=== PATIENT | female | born 1945 | race Asian ===

== ENCOUNTER 2016-06-04 08:03 | Inpatient (IN) | payer MEDICARE, OTHER ==
[2016-06-04] VITALS (7 sets, daily range): BP systolic 163–210; BP diastolic 72–98; PULSE 72–92; RESP 16–20; TEMP 96.2–98.2; O2SAT 96–99
[~2016-06-04] VITALS: Ht 154.9 cm; Wt 49.0 kg
[~2016-06-04 08:03] MED LIST: CARV6.25 PO; ENAL20TA81 PO; HYDR50TA15 PO; NORV5TAB PO; RANI150 PO; RENATAB6 PO; TUMS500C PO; [UNRECOGNIZED DRUG - CODE] PO
[2016-06-04] MEDS ORDERED: RENATAB5 PO (08:22)
[2016-06-04] MEDS ORDERED: AMLO5 PO (08:22)
[2016-06-04] MEDS ORDERED: MECL-62 PO (08:22)
[2016-06-04] MEDS ORDERED: CALC500C16 CHEW (08:22)
[2016-06-04] MEDS ORDERED: VITA200013 (08:22)
[2016-06-04] MEDS ORDERED: RANI150T PO (08:22)
[2016-06-04] MEDS ORDERED: PANTOPRAZOLE SODIUM 40 MG VIAL IVP ONE (08:30)
--- NOTE | 2016-06-04 08:30 | PD ---
HPI Chief Complaint: GI Complaint Time Seen by Provider: 08:26 Travel History International Travel<30 days: No Contact w/Intl Traveler<30days: No Traveled to known affect area: No History of Present Illness HPI 70-year-old female with history of end-stage renal disease on dialysis, had dialysis today, presents to the ER today because she started having red blood in her stools today. She states that she has had at least 3 stools of red blood. No black stools. She denies any abdominal pain, vomiting, or any other symptoms. Modifying Factors: None Associated Signs & Symptoms: Red bloody stools 3 today Risk Factors: End-stage renal disease, on dialysis PFSH Past Medical History Blood Disorders: No Cancer: No Cardiovascular Problems: No Diabetes: No Dialysis: Yes (M,W,F) Glaucoma: Yes Hepatitis: No Hiatal Hernia: No Hypertension: Yes Psychiatric: No Respiratory: No Immunizations Current: Yes Renal Failure: Yes (NO URINE OUT PUT) Thyroid Disease: Yes (HYPERPARATHYROIDISM) Menopausal: Yes Past Surgical History Abdominal Surgery: Yes (TUMOR REMOVED) Endocrine Surgery: Yes (RENAL FAILURE, PARATHYROIDECTOMY) Genitourinary Surgery: Yes (RIGHT NEPHRECTOMY) Gynecologic Surgery: Yes (HYSTERECTOMY) Pacemaker: No Other Surgery: Yes Social History Alcohol Use: No Tobacco Use: No Substance Use: No Allergies-Medications (Allergen,Severity, Reaction): Coded Allergies: Ancef (Verified Allergy, Severe, UNSURE, 08/27/12) Cephalosporins (Verified Allergy, Severe, 08/27/12) ANCEF Chlorhexidine (Verified Allergy, Severe, 08/27/12) HIBICLENS Hibiclens (Verified Allergy, Severe, UNSURE, 08/27/12) Reported Meds & Prescriptions Reported Meds & Active Scripts Active Reported Nadine-Santa (B-Complex W/ C & Folic Acid) 1 Tab 1 Tab PO DAILY Ranitidine (Ranitidine HCl) 150 Mg Tab 150 Mg PO BID Calcium Carbonate (Antacid) 500 Mg Chew 500 Mg CHEW PRN Vitamin D (Cholecalciferol) 2,000 Unit Cap Meclizine (Meclizine HCl) 25 Mg Tab 25 Mg PO DIRECTED PRN Norvasc (Amlodipine Besylate) 5 Mg Tab 5 Mg PO DAILY Review of Systems Except as stated in HPI: all other systems reviewed are Neg Physical Exam Narrative GENERAL: Well-developed elderly female in no acute distress. Awake, alert , oriented 3. SKIN: Warm and dry. HEAD: Atraumatic. Normocephalic. EYES: Pupils equal and round. No scleral icterus. No injection or drainage. ENT: No nasal bleeding or discharge. Mucous membranes pink and moist. NECK: Trachea midline. No JVD. CARDIOVASCULAR: Regular rate and rhythm. No murmur appreciated. RESPIRATORY: No accessory muscle use. Clear to auscultation. Breath sounds equal bilaterally. GASTROINTESTINAL: Abdomen soft, non-tender, nondistended. Hepatic and splenic margins not palpable. RECTAL EXAM: No masses or tenderness, stool is reddish brown, Hemoccult positive. MUSCULOSKELETAL: No obvious deformities. No clubbing. No cyanosis. No edema. NEUROLOGICAL: Awake and alert. No obvious cranial nerve deficits. Motor grossly within normal limits. Normal speech. PSYCHIATRIC: Appropriate mood and affect; insight and judgment normal. Data Data Last Documented VS Vital Signs Date Time Temp Pulse Resp B/P Pulse Ox O2 Delivery O2 Flow Rate FiO2 06/04/16 09:22 99 Room Air 06/04/16 08:05 97.4 92 20 210/95 Orders Complete Blood Count With Diff (06/04/16 08:26) Comprehensive Metabolic Panel (06/04/16 08:26) Prothrombin Time / Inr (Pt) (06/04/16 08:26) Act Partial Throm Time (Ptt) (06/04/16 08:26) Type And Screen (06/04/16 08:26) Ecg Monitoring (06/04/16 08:26) Iv Access Insert/Monitor (06/04/16 08:26) Oximetry (06/04/16 08:26) Pantoprazole Inj (Protonix Inj) (06/04/16 08:30) Sodium Chloride 0.9% Flush (Ns Flush) (06/04/16 08:30) Vascular Access Team Consult PRN (06/04/16 08:26) Vascular Poc Ultrasound (06/04/16 ) Red Blood Cells (Rbc) (06/04/16 08:20) Amlodipine (Norvasc) (06/05/16 09:00) Vitamin B Cmplx-Vit C-Folic Ac (Nephroca (06/05/16 09:00) Admit Order (Ed Use Only) (06/04/16 10:48) Famotidine (Pepcid) (06/04/16 21:00) Labs Laboratory Tests Test 06/04/16 06/04/16 06/04/16 08:20 08:50 10:00 Sodium Level 137 MEQ/L Potassium Level 4.2 MEQ/L Chloride Level 100 MEQ/L Carbon Dioxide Level 23.6 MEQ/L Anion Gap 13 MEQ/L Blood Urea Nitrogen 28 MG/DL Creatinine 6.20 MG/DL Estimat Glomerular Filtration 7 ML/MIN Rate Random Glucose 109 MG/DL Calcium Level 9.5 MG/DL Total Bilirubin 0.5 MG/DL Aspartate Amino Transf 23 U/L (AST/SGOT) Alanine Aminotransferase 18 U/L (ALT/SGPT) Alkaline Phosphatase 93 U/L Total Protein 8.2 GM/DL Albumin 3.8 GM/DL White Blood Count 6.9 TH/MM3 Red Blood Count 3.76 MIL/MM3 Hemoglobin 9.2 GM/DL Hematocrit 26.6 % Mean Corpuscular Volume 70.7 FL Mean Corpuscular Hemoglobin 24.4 PG Mean Corpuscular Hemoglobin 34.5 % Concent Red Cell Distribution Width 14.9 % Platelet Count 253 TH/MM3 Mean Platelet Volume 7.2 FL Neutrophils (%) (Auto) 85.2 % Lymphocytes (%) (Auto) 5.6 % Monocytes (%) (Auto) 5.0 % Eosinophils (%) (Auto) 3.4 % Basophils (%) (Auto) 0.8 % Neutrophils # (Auto) 5.9 TH/MM3 Lymphocytes # (Auto) 0.4 TH/MM3 Monocytes # (Auto) 0.3 TH/MM3 Eosinophils # (Auto) 0.2 TH/MM3 Basophils # (Auto) 0.1 TH/MM3 CBC Comment AUTO DIFF Differential Comment AUTO DIFF CONFIRMED Ovalocytes 1+ Prothrombin Time 10.7 SEC Prothromb Time International 1.0 RATIO Ratio Activated Partial 27.9 SEC Thromboplast Time Blood Type O POSITIVE Antibody Screen NEGATIVE Crossmatch Leukocyte-Reduced Red Blood Cells Blood Bank Comment MDM Medical Decision Making Medical Screen Exam Complete: Yes Emergency Medical Condition: Yes Medical Record Reviewed: Yes Interpretation(s) Laboratory Tests Test 06/04/16 06/04/16 08:20 08:50 Blood Urea Nitrogen 28 MG/DL (7-18) Creatinine 6.20 MG/DL (0.50-1.00) Estimat Glomerular Filtration 7 ML/MIN (>89) Rate Random Glucose 109 MG/DL (74-106) Red Blood Count 3.76 MIL/MM3 (4.00-5.30) Hemoglobin 9.2 GM/DL (11.6-15.3) Hematocrit 26.6 % (35.0-46.0) Mean Corpuscular Volume 70.7 FL (80.0-100.0) Mean Corpuscular Hemoglobin 24.4 PG (27.0-34.0) Neutrophils (%) (Auto) 85.2 % (16.0-70.0) Lymphocytes (%) (Auto) 5.6 % (9.0-44.0) Lymphocytes # (Auto) 0.4 TH/MM3 (1.0-4.8) Ovalocytes 1+ (NORMAL) Differential Diagnosis Rectal bleedingcoagulopathy versus GI bleeding versus gastroenteritis versus hemorrhoids Narrative Course Hemoccult positive on assessment the patient gave us. Rectal exam also shows bleeding. H&H is stable. Vital signs are stable. Case is discussed with Dr. Tobar for admission for further evaluation of GI bleeding. She was given IV Protonix in the ER. Case was also discussed with Dr. Arellano who states that he would like the patient to receive an NG tube and plans to scope the patient. HemaPrompt Point of Care Internal Pos. & Neg. Controls: Passed Fecal Specimen Occult Blood: Positive Diagnosis Primary Impression: GI bleed Admitting Information Admitting Physician Requests: Admit Arden Wolf MD Jun 04, 2016 08:30
[2016-06-04 08:54] LABS: ALT (GPT) 18 U/L (10-53); ANION GAP 13 MEQ/L (5-15); AST (GOT) 23 U/L (15-37); BICARBONATE 23.6 MEQ/L (21.0-32.0); BLOOD UREA NITROGEN 28 MG/DL (7-18); CHLORIDE 100 MEQ/L (98-107); GLOMERULAR FILTRATION RATE 7 ML/MIN (>89); POTASSIUM 4.2 MEQ/L (3.5-5.1); SODIUM (NA) 137 MEQ/L (136-145)
[2016-06-04 08:56] LABS: ALKALINE PHOSPHATASE 93 U/L (45-117); TOTAL BILIRUBIN ADULT 0.5 MG/DL (0.2-1.0)
[2016-06-04 09:02] LABS: AUTOMATED NEUTROPHIL # 5.9 TH/MM3 (1.8-7.7); BASOPHIL # 0.1 TH/MM3 (0-0.2); BASOPHIL % 0.8 % (0.0-2.0); EOSINOPHIL # 0.2 TH/MM3 (0-0.4); EOSINOPHIL % 3.4 % (0.0-4.0); HEMATOCRIT 26.6 % (35.0-46.0); LYMPH % 5.6 % (9.0-44.0); LYMPHOCYTE # 0.4 TH/MM3 (1.0-4.8); MEAN CELL VOLUME 70.7 FL (80.0-100.0); MEAN CORPUSCULAR HEMOGLOBIN 24.4 PG (27.0-34.0); MEAN CORPUSCULAR HGB CONC 34.5 % (32.0-36.0); NEUT % 85.2 % (16.0-70.0); PLATELET COUNT 253 TH/MM3 (150-450); RED BLOOD COUNT 3.76 MIL/MM3 (4.00-5.30); RED CELL DISTRIBUTION WIDTH 14.9 % (11.6-17.2); WHITE BLOOD COUNT 6.9 TH/MM3 (4.0-11.0)
[2016-06-04 09:04] LABS: HEMO FLAGS AUTO DIFF
[2016-06-04 09:08] LABS: APTT (PATIENT) 27.9 SEC (24.3-30.1); PROTHROMBIN TIME - PATIENT 10.7 SEC (9.8-11.6)
[2016-06-04] MEDS: SODIUM CHLORIDE 0.9% FLUSH 5 ML FLUSH IVF PRN ×2 (09:11→09:20)
[2016-06-04 09:46] LABS: OVALOCYTES 1+ (NORMAL); SCAN/DIFF AUTO DIFF CONFIRMED
[2016-06-04] MEDS ORDERED: BISACODYL 10 MG SUPP PR PRN (11:00)
[2016-06-04] MEDS ORDERED: ONDANSETRON HCL 4 MG/2 ML VIAL IVP PRN (11:00)
[2016-06-04] MEDS ORDERED: NALOXONE HCL 0.4 MG/ML AMP IV PRN (11:00)
[2016-06-04] MEDS ORDERED: SODIUM CHLORIDE 0.9% FLUSH 5 ML FLUSH FLUSH PRN (11:00)
--- NOTE | 2016-06-04 11:00 | HHI.HP ---
[facility] Service [facility] Primary Care Physician Solitario Martinez MD Admission Diagnosis GI bleed Diagnoses: Chief Complaint: GI bleed Travel History International Travel<30 Days: No Contact w/Intl Traveler <30 Da: No Traveled to Known Affected Are: No History of Present Illness This is a pleasant 70 y/o Female with ESRD on Hemodialysis she had Dialysis today and was sent to Emergency room due to acute Rectal bleed, she started today with red blood in her stools, as Hematochezia no black stools, denied abdominal pain, vomiting. Discussed in the room with the patient's Mr. Jose Elias Miller and with her Daughter Miss Robbie Miller through the phone who serves as Yard Pilot for her Mother, the patient left her Home this morning at 4:30 AM and then went for Hemodialysis, while on HD she had the urge to go to the restroom and had blood in her anal and perianal area. for this reason was transferred to ER. Review of Systems Gastrointestinal: COMPLAINS OF: Bloody stools Past Family Social History Past Medical History ESRD on HD Wednesday, Wednesday and Wednesday. Hypertension Hyperparathyroidism Past Surgical History AV Graft Renal failure Parathyroidectomy Right Nephrectomy [facility] Reported Medications Reported Meds & Active Scripts Active Reported Nadine-Santa (B-Complex W/ C & Folic Acid) 1 Tab 1 Tab PO DAILY Ranitidine (Ranitidine HCl) 150 Mg Tab 150 Mg PO BID Calcium Carbonate (Antacid) 500 Mg Chew 500 Mg CHEW PRN Vitamin D (Cholecalciferol) 2,000 Unit Cap Meclizine (Meclizine HCl) 25 Mg Tab 25 Mg PO DIRECTED PRN Norvasc (Amlodipine Besylate) 5 Mg Tab 5 Mg PO DAILY Allergies: Coded Allergies: Ancef (Verified Allergy, Severe, UNSURE, 08/27/12) Cephalosporins (Verified Allergy, Severe, 08/27/12) ANCEF Chlorhexidine (Verified Allergy, Severe, 08/27/12) HIBICLENS Hibiclens (Verified Allergy, Severe, UNSURE, 08/27/12) Active Ordered Medications Current Medications Medications (Trade) Dose Ordered Sig/Freda Route Start Time Stop Time Status Last Admin (NS Flush) 2 ml UNSCH PRN IVF 06/04/16 08:30 06/04/16 09:20 (Norvasc) 5 mg DAILY PO 06/05/16 09:00 UNV (Zantac) 150 mg BID PO 06/04/16 21:00 UNV Non-Formulary Medication 1 tab DAILY PO 06/05/16 09:00 UNV Family History Asked to her Daughter and denies, she does not know about it Social History Lives with her and denies any toxic habit. Physical Exam Vital Signs Vital Signs Date Time Temp Pulse Resp B/P Pulse Ox O2 Delivery O2 Flow Rate FiO2 06/04/16 09:22 99 Room Air 06/04/16 08:05 97.4 92 20 210/95 99 Room Air Physical Exam GENERAL: Well-developed elderly female in no acute distress. Awake, alert , oriented 3. SKIN: Warm and dry. HEAD: Atraumatic. Normocephalic. EYES: Pupils equal and round. No scleral icterus. No injection or drainage. ENT: No nasal bleeding or discharge. Mucous membranes pink and moist. NECK: Trachea midline. No JVD. CARDIOVASCULAR: Regular rate and rhythm. Systolic Murmur in all focus evaluated. RESPIRATORY: No accessory muscle use. Clear to auscultation. Breath sounds equal bilaterally. GASTROINTESTINAL: Abdomen soft, non-tender, nondistended. Hepatic and splenic margins not palpable. RECTAL EXAM: No masses or tenderness, stool is reddish brown, Hemoccult positive. MUSCULOSKELETAL: No obvious deformities. No clubbing. No cyanosis. No edema. NEUROLOGICAL: Awake and alert. No obvious cranial nerve deficits. Motor grossly within normal limits. Normal speech. PSYCHIATRIC: Appropriate mood and affect; insight and judgment normal. Laboratory Laboratory Tests Test 06/04/16 06/04/16 06/04/16 08:20 08:50 10:00 Sodium Level 137 Potassium Level 4.2 Chloride Level 100 Carbon Dioxide Level 23.6 Anion Gap 13 Blood Urea Nitrogen 28 Creatinine 6.20 Estimat Glomerular Filtration 7 Rate Random Glucose 109 Calcium Level 9.5 Total Bilirubin 0.5 Aspartate Amino Transf 23 (AST/SGOT) Alanine Aminotransferase 18 (ALT/SGPT) Alkaline Phosphatase 93 Total Protein 8.2 Albumin 3.8 White Blood Count 6.9 Red Blood Count 3.76 Hemoglobin 9.2 Hematocrit 26.6 Mean Corpuscular Volume 70.7 Mean Corpuscular Hemoglobin 24.4 Mean Corpuscular Hemoglobin 34.5 Concent Red Cell Distribution Width 14.9 Platelet Count 253 Mean Platelet Volume 7.2 Neutrophils (%) (Auto) 85.2 Lymphocytes (%) (Auto) 5.6 Monocytes (%) (Auto) 5.0 Eosinophils (%) (Auto) 3.4 Basophils (%) (Auto) 0.8 Neutrophils # (Auto) 5.9 Lymphocytes # (Auto) 0.4 Monocytes # (Auto) 0.3 Eosinophils # (Auto) 0.2 Basophils # (Auto) 0.1 CBC Comment AUTO DIFF Differential Comment AUTO DIFF CONFIRMED Ovalocytes 1+ Prothrombin Time 10.7 Prothromb Time International 1.0 Ratio Activated Partial 27.9 Thromboplast Time Blood Type O POSITIVE Result Diagram: 06/04/16 0850 06/04/16 0820 Assessment and Plan Assessment and Plan 1. Rectal Bleed evident on Rectal Exam by ER specialist, Hemoglobin stable in 9, continue H and H every six hours, consult GI specialist. start NPO Protonix, following GI specialist recommendations. 2. ESRD on HD on MWF she had HD today, will follow Nephrology specialist recommendations. 3. Hypertension controlled continue Home medicines 4. Anemia on chronic disease Hemoglobin stable in 9 following, transfuse as needed. DVT prophylaxis with SCDs Pharmacological Prophylaxis contraindicated due to acute GI bleed. Discussed with Patient with her Mr. Jose Elias Miller and through the phone with her Daughter Miss Robbie Miller who serves as music therapy teacher for her Mother appreciated all questions answered to the best of my abilities. Consult GI consult Nephrology Protonix SCDs Hemoglobin A1C, TSH, Free T4. H and H every six hours. PT consult No need to continue PT at Discharge. As Always a pleasure to talk about cases with Emergency Medicine specialist doctor Arden Wolf input and recommendations highly appreciated. Code Status Full code. Discussed Condition With Discussed with Patient with her Mr. Jose Elias Miller and through the phone with her Daughter Miss Robbie Miller who serves as music therapy teacher for her Mother appreciated all questions answered to the best of my abilities. As Always a pleasure to talk about cases with Emergency Medicine specialist doctor Arden Ramosara input and recommendations highly appreciated. Physician Certification 2 Midnight Certification Type: Admission for Inpatient Services Order for Inpatient Services The services are ordered in accordance with Medicare regulations or non- Medicare payer requirements, as applicable. In the case of services not specified as inpatient-only, they are appropriately provided as inpatient services in accordance with the 2-midnight benchmark. Estimated LOS (days): 3 days is the estimated time the patient will need to remain in the hospital, assuming treatment plan goals are met and no additional complications. Post-Hospital Plan: Home Cirilo Elaine MD Jun 04, 2016 11:00
[2016-06-04 12:38] LABS: FREE T4 1.24 NG/DL (0.76-1.46)
[2016-06-04 12:39] LABS: HEMOGLOBIN A1a 1.2 %; HEMOGLOBIN A1b 0.7 %; HEMOGLOBIN Ao 55.5 %; HEMOGLOBIN F 1.1 %
[2016-06-04] MEDS: SODIUM CHLOR 0.9% 1000 ML INJ 1,000 ML IV SCH ×2 (12:49→14:38)
[2016-06-04] MEDS: DOCUSATE SODIUM 100 MG CAP PO SCH ×2 (12:49→22:19)
[2016-06-04] MEDS: PANTOPRAZOLE SODIUM 40 MG VIAL IV PUSH SCH ×2 (12:50→22:19)
[2016-06-04] MEDS: SODIUM CHLORIDE 0.9% FLUSH 5 ML FLUSH FLUSH SCH ×2 (12:51→22:20)
--- NOTE | 2016-06-04 12:52 | PD.CONS ---
HPI History of Present Illness This is a 70 year old female patient with a history of end-stage renal disease ( on hemodialysis on Tuesdays, and Saturdays), hypertension, and a remote history of peptic ulcer disease many years ago who came to the emergency room for evaluation of rectal bleeding after having an episode while at dialysis earlier this am. This actually started earlier this morning around 4: 30 when she had the urge to move her bowels and just passed bright red blood. This consisted of a large amount of bright red blood independent from stool. She had 2 episodes today. She denies any associated nausea, vomiting, abdominal pain, constipation, or diarrhea. She denies any heartburn although she she is taking Zantac and Tums at home. Her daughter reports that she's been on these for many years since she had a stomach ulcer many years ago. She has never had an EGD or colonoscopy. She does not take ibuprofen does not drink any alcohol. She was in her normal state of health up until yesterday and denies any decreased appetite or weight loss. She does not know her family history, as they are all still living in [facility]. (Susan Davila) PFSH Past Medical History ESRD on HD Tuesdays, , and Saturdays. Hypertension Hyperparathyroidism Remote hx of PUD Hx glomerulonephritis Past Surgical History AV Graft Renal failure Parathyroidectomy Right Nephrectomy [facility] (Susan Davila) Coded Allergies: Ancef (Verified Allergy, Severe, UNSURE, 08/27/12) Cephalosporins (Verified Allergy, Severe, 08/27/12) ANCEF Chlorhexidine (Verified Allergy, Severe, 08/27/12) HIBICLENS Hibiclens (Verified Allergy, Severe, UNSURE, 08/27/12) Medications Allergies Coded Allergies Type Severity Reaction Last Updated Verified Ancef Allergy Severe UNSURE 08/27/12 Yes Cephalosporins Allergy Severe 08/27/12 Yes Chlorhexidine Allergy Severe 08/27/12 Yes Hibiclens Allergy Severe UNSURE 08/27/12 Yes Active Scripts Medications Dose Route/Sig Days Date Category Nadine-Santa (B-Complex W/ C & Folic Acid) 1 Tab 1 Tab PO DAILY 06/04/16 Reported Ranitidine (Ranitidine HCl) 150 Mg Tab 150 Mg PO BID 06/04/16 Reported Calcium Carbonate (Antacid) 500 Mg Chew 500 Mg CHEW PRN 06/04/16 Reported Vitamin D (Cholecalciferol) 2,000 Unit Cap 06/04/16 Reported Meclizine (Meclizine HCl) 25 Mg Tab 25 Mg PO DIRECTED PRN 06/04/16 Reported Norvasc (Amlodipine Besylate) 5 Mg Tab 5 Mg PO DAILY 06/04/16 Reported Family History Daughter reports that they do not know the family hx as they are all still in [facility] and they do not keep in touch. Social History Denies any tobacco, ETOH, or illicit drug use. (Susan Davila) Review of Systems Constitutional: DENIES: Fatigue, Weight loss, Change in appetite Respiratory: DENIES: Shortness of breath Cardiovascular: DENIES: Chest pain Gastrointestinal: COMPLAINS OF: Bloody stools, DENIES: Abdominal pain, Black stools, Constipation, Diarrhea, Nausea, Vomiting, Heartburn, Hematemesis Neurologic: DENIES: Headache Psychiatric: DENIES: Confusion (Susan Davila) GI Exam Vitals I&O Vital Signs Date Time Temp Pulse Resp B/P Pulse Ox O2 Delivery O2 Flow Rate FiO2 06/04/16 09:22 99 Room Air 06/04/16 08:05 97.4 92 20 210/95 99 Room Air Laboratory Test 06/04/16 06/04/16 06/04/16 08:20 08:50 10:00 Sodium Level 137 MEQ/L Potassium Level 4.2 MEQ/L Chloride Level 100 MEQ/L Carbon Dioxide Level 23.6 MEQ/L Anion Gap 13 MEQ/L Blood Urea Nitrogen 28 MG/DL Creatinine 6.20 MG/DL Estimat Glomerular Filtration 7 ML/MIN Rate Random Glucose 109 MG/DL Calcium Level 9.5 MG/DL Total Bilirubin 0.5 MG/DL Aspartate Amino Transf 23 U/L (AST/SGOT) Alanine Aminotransferase 18 U/L (ALT/SGPT) Alkaline Phosphatase 93 U/L Total Protein 8.2 GM/DL Albumin 3.8 GM/DL White Blood Count 6.9 TH/MM3 Red Blood Count 3.76 MIL/MM3 Hemoglobin 9.2 GM/DL Hematocrit 26.6 % Mean Corpuscular Volume 70.7 FL Mean Corpuscular Hemoglobin 24.4 PG Mean Corpuscular Hemoglobin 34.5 % Concent Red Cell Distribution Width 14.9 % Platelet Count 253 TH/MM3 Mean Platelet Volume 7.2 FL Neutrophils (%) (Auto) 85.2 % Lymphocytes (%) (Auto) 5.6 % Monocytes (%) (Auto) 5.0 % Eosinophils (%) (Auto) 3.4 % Basophils (%) (Auto) 0.8 % Neutrophils # (Auto) 5.9 TH/MM3 Lymphocytes # (Auto) 0.4 TH/MM3 Monocytes # (Auto) 0.3 TH/MM3 Eosinophils # (Auto) 0.2 TH/MM3 Basophils # (Auto) 0.1 TH/MM3 CBC Comment AUTO DIFF Differential Comment AUTO DIFF CONFIRMED Ovalocytes 1+ Prothrombin Time 10.7 SEC Prothromb Time International 1.0 RATIO Ratio Activated Partial 27.9 SEC Thromboplast Time Blood Type O POSITIVE Antibody Screen NEGATIVE Crossmatch Leukocyte-Reduced Red Blood Cells Blood Bank Comment Physical Examination HEENT: Normocephalic; atraumatic; no jaundice. CHEST: CTA CARDIAC: RRR. ABDOMEN: Soft, nondistended, nontender; no hepatosplenomegaly; bowel sounds are present in all four quadrants. EXTREMITIES: No clubbing, cyanosis, or edema. SKIN: Normal; no rash; no jaundice. RECREATIONAL FACILITIES MOTEL MANAGER: No focal deficits; alert and oriented times three. (Susan Davila) Assessment and Plan Plan ASSESSMENT: - GIB, Lower with BRBPR. Pt denies any n/v, abdominal pain, constipation, diarrhea. 2 episodes of large amount bright red blood, independent from stool. Pt's daughter believes patient has remote hx of PUD and does take Zantac at home, although she is not currently having symptoms with this. Denies hx of egd/colonoscopy. Unsuccessful attempt was made to place NGT to see if there was any upper GI bleed component (bloody gastric secretions)- this was unable to be placed despite multiple attempts. .. Will plan for egd/colonoscopy in am. Spoke to pt, , and daughter Robbie Frederick . - Anemia. . - ESRD, HD Tuesdays, , Saturdays per renal. - HTN per primary PLAN: - Plan for egd/colonoscopy in am - Obtain consents - Clear liquids - NPO after MN - Golytely prep - PPI - Monitor HH - Transfuse as necessary - Supportive care - Further recommendations to follow based on results of above - Pt seen and examined by Dr. Green and myself and this note is written on his behalf (Susan Davila) Physician Comments Seen and examined with ДМИТРИЙ, no active bleeding rported. Egd/colonoscopy planned for tomorrow. Golytle prep. at bedside. Discussed with the daughter BY Ms. Lola CHOE. Unable to place NGT. WIll follow, thank you ( Jenny Green MD) Susan Davila Jun 04, 2016 12:52 Jenny Green MD Jun 04, 2016 13:48
[2016-06-04] MEDS ORDERED: hydrALAZINE HCL 20 MG/ML VIAL IV PUSH PRN (13:00)
[2016-06-04] MEDS: cloNIDine HCL 0.1 MG TAB PO PRN (15:06)
[2016-06-04] MEDS ORDERED: PEG (High)/E-LYTE SOLN 4000 ML BTL PO ONE (16:00)
[2016-06-04] MEDS ORDERED: SODIUM CHLOR 0.9% 1000 ML INJ 1,000 ML IV PRN ×3 (17:12)
--- NOTE | 2016-06-04 17:12 | PD.CONS ---
[facility] Service Nephrology Consult Requested By Reason for Consult ESRD on HD Primary Care Physician Solitario Martinez MD History of Present Illness This is a 70 y/o female pt formerly from [facility]. She went to HD today, had her full treatment. Later, she developed GI bleeding for which she came in for evaluation. She has a graft in her left thigh that works well. No current electrolyte concerns, we were consulted for dialysis management. PMH as outlined below, she has been evaluated by GI and is scheduled for EGD/ colonoscopy in am. She is a full code. (Raquel Farrell) Review of Systems Constitutional: DENIES: Fatigue Respiratory: DENIES: Shortness of breath Cardiovascular: DENIES: Lower Extremity Edema Gastrointestinal: COMPLAINS OF: Bloody stools, Nausea, DENIES: Abdominal pain , Diarrhea, Vomiting (Raquel Farrell) Past Family Social History Allergies: Coded Allergies: Ancef (Verified Allergy, Severe, UNSURE, 08/27/12) Cephalosporins (Verified Allergy, Severe, 08/27/12) ANCEF Chlorhexidine (Verified Allergy, Severe, 08/27/12) HIBICLENS Hibiclens (Verified Allergy, Severe, UNSURE, 08/27/12) Past Medical History ESRD on HD Tuesdays, , and Saturdays. Hypertension anemia of chronic disease metabolic bone disorder Secondary Hyperparathyroidism Remote hx of PUD Hx glomerulonephritis Past Surgical History L thigh AV Graft Renal failure Parathyroidectomy Right Nephrectomy [place] Reported Medications Nadine-Santa (B-Complex W/ C & Folic Acid) 1 Tab 1 Tab PO DAILY Ranitidine (Ranitidine HCl) 150 Mg Tab 150 Mg PO BID Calcium Carbonate (Antacid) 500 Mg Chew 500 Mg CHEW PRN Vitamin D (Cholecalciferol) 2,000 Unit Cap Meclizine (Meclizine HCl) 25 Mg Tab 25 Mg PO DIRECTED PRN Norvasc (Amlodipine Besylate) 5 Mg Tab 5 Mg PO DAILY Active Ordered Medications Current Medications Medications (Trade) Dose Ordered Sig/Freda Route Start Time Stop Time Status Last Admin (NS Flush) 2 ml UNSCH PRN IVF 06/04/16 08:30 06/04/16 09:20 (Norvasc) 5 mg DAILY PO 06/05/16 09:00 (Pepcid) 10 mg BID PO 06/04/16 21:00 (Nephrocaps) 1 cap DAILY PO 06/05/16 09:00 (NS Flush) 2 ml UNSCH PRN FLUSH 06/04/16 11:00 (NS Flush) 2 ml BID FLUSH 06/04/16 21:00 06/04/16 12:51 (Zofran Inj) 4 mg Q6H PRN IVP 06/04/16 11:00 (Dulcolax Supp) 10 mg DAILY PRN [place] 06/04/16 11:00 (Colace) 100 mg Q12H PO 06/04/16 11:00 06/04/16 12:49 (Narcan Inj) 0.4 mg UNSCH PRN IV 06/04/16 11:00 (Protonix Inj) 40 mg Q12H IV PUSH 06/04/16 12:00 06/04/16 12:50 (Apresoline Inj) 10 mg Q6HR PRN IV PUSH 06/04/16 13:00 (Catapres) 0.1 mg Q6H PRN PO 06/04/16 15:00 06/04/16 15:06 Family History she does not have contact with her family in [facility] Social History originally from [facility] Retired lives with , ambulatory no smoking or ETOH full code (Raquel Farrell) Physical Exam Vital Signs Vital Signs Date Time Temp Pulse Resp B/P Pulse Ox O2 Delivery O2 Flow Rate FiO2 06/04/16 14:17 96.2 78 16 194/83 97 06/04/16 13:58 06/04/16 13:03 188/98 06/04/16 09:22 99 Room Air 06/04/16 08:05 97.4 92 20 210/95 99 Room Air Physical Exam Small framed elderly [place] female, appears stated age, lying in bed awake/alert, no neuro deficit CV: S1/S2, II/ JASS lungs: clear abdomen: soft, non tender ext: no edema, left thigh graft patent distal pulses intact Laboratory Laboratory Tests Test 06/04/16 06/04/16 06/04/16 08:20 08:50 10:00 Sodium Level 137 Potassium Level 4.2 Chloride Level 100 Carbon Dioxide Level 23.6 Anion Gap 13 Blood Urea Nitrogen 28 Creatinine 6.20 Estimat Glomerular Filtration 7 Rate Random Glucose 109 Calcium Level 9.5 Total Bilirubin 0.5 Aspartate Amino Transf 23 (AST/SGOT) Alanine Aminotransferase 18 (ALT/SGPT) Alkaline Phosphatase 93 Total Protein 8.2 Albumin 3.8 White Blood Count 6.9 Red Blood Count 3.76 Hemoglobin 9.2 Hematocrit 26.6 Mean Corpuscular Volume 70.7 Mean Corpuscular Hemoglobin 24.4 Mean Corpuscular Hemoglobin 34.5 Concent Red Cell Distribution Width 14.9 Platelet Count 253 Mean Platelet Volume 7.2 Neutrophils (%) (Auto) 85.2 Lymphocytes (%) (Auto) 5.6 Monocytes (%) (Auto) 5.0 Eosinophils (%) (Auto) 3.4 Basophils (%) (Auto) 0.8 Neutrophils # (Auto) 5.9 Lymphocytes # (Auto) 0.4 Monocytes # (Auto) 0.3 Eosinophils # (Auto) 0.2 Basophils # (Auto) 0.1 CBC Comment AUTO DIFF Differential Comment AUTO DIFF CONFIRMED Ovalocytes 1+ Prothrombin Time 10.7 Prothromb Time International 1.0 Ratio Activated Partial 27.9 Thromboplast Time Hemoglobin A1c 5.6 Free Thyroxine 1.24 Thyroid Stimulating Hormone 2.240 3rd Gen Blood Type O POSITIVE Antibody Screen NEGATIVE Crossmatch Leukocyte-Reduced Red Blood Cells Blood Bank Comment (Raquel Farrell) Result Diagram: 06/04/16 0850 06/04/16 0820 Assessment and Plan Problem List: (1) ESRD (end stage renal disease) on dialysis Plan: HD T-, she does not require additional treatments I have stopped IVF no electrolyte concerns she has patent AV graft for dialysis intermittent renal panel avoid gadolinium high protein diet (2) HTN (hypertension) Plan: resume home medications (3) Anemia Plan: epogen with HD check iron profile (4) Metabolic bone disease Plan: begin renvela (5) GI bleed Plan: GI following to have EGD/colonoscopy in am transfuse as needed further recommendations based on results of above (Raquel Farrell) Assessment and Plan patient was seen and examined. Dialysis will be continued TTS. GI evaluation. Monitor Hemoglobin. (Kevin Jefferson MD) Raquel Farrell Jun 04, 2016 17:12 Kevin Jefferson MD Jun 04, 2016 18:00
[2016-06-04] MEDS ORDERED: NITROGLYCERIN 0.4 MG SL 25 TABS/BTL SL PRN (17:15)
[2016-06-04] MEDS ORDERED: ACETAMINOPHEN 325 MG TAB PO PRN (17:15)
[2016-06-04] MEDS ORDERED: HEPARIN SODIUM - IV 10,000 UNITS/10 ML VIAL IVF PRN (17:15)
[2016-06-04] MEDS ORDERED: SODIUM CHLORIDE 0.9% FLUSH 5 ML FLUSH IVF PRN (17:15)
[2016-06-04] MEDS ORDERED: HEPARIN SODIUM - IV 10,000 UNITS/10 ML VIAL PRN (17:15)
[2016-06-04] MEDS ORDERED: ONDANSETRON HCL 4 MG/2 ML VIAL IV PRN (17:15)
[2016-06-04] MEDS ORDERED: GENTAMICIN SULFATE (DIALYSIS USE ONLY) 20 MG/2 ML VIAL IV PRN (17:15)
[2016-06-04] MEDS ORDERED: diphenhydrAMINE HCL 25 MG CAP PO PRN (17:15)
[2016-06-04] MEDS ORDERED: EPOETIN ALFA 10,000 UNITS/ML VIAL IV PRN (17:15)
[2016-06-04] MEDS ORDERED: ALBUMIN HUMAN 25% 25 GM/100 ML BAGP IV PRN (17:15)
[2016-06-04] MEDS ORDERED: cloNIDine HCL 0.1 MG TAB PO PRN (17:15)
[2016-06-04] MEDS ORDERED: GELATIN 12 MM/7 MM FOAM TOP PRN (17:15)
[2016-06-04] MEDS ORDERED: MANNITOL 12.5 GM/50 ML VIAL IV PRN (17:15)
[2016-06-04 19:41] LABS: HEMATOCRIT 24.1 % (35.0-46.0)
[2016-06-04] MEDS: FAMOTIDINE 20 MG TAB PO SCH (22:19)
[2016-06-05] VITALS (11 sets, daily range): BP systolic 144–165; BP diastolic 66–85; PULSE 71–75; RESP 16–25; TEMP 97.9–99; O2SAT 96–99
[2016-06-05] MEDS ORDERED: FUROSEMIDE 20 MG/2 ML VIAL IV PUSH ONE (04:15)
[2016-06-05] MEDS: VITAMIN B CMPLX/VITC/FOLIC AC CAP PO SCH (08:00)
[2016-06-05] MEDS: SEVELAMER CARBONATE 800 MG TAB PO SCH ×4 (08:01→17:00)
[2016-06-05] MEDS: FAMOTIDINE 20 MG TAB PO SCH ×2 (08:01→19:57)
[2016-06-05] MEDS: amLODIPine BESYLATE 5 MG TAB PO SCH (08:01)
--- NOTE | 2016-06-05 08:50 | HHI.PR ---
Subjective Remarks This is a pleasant 70 y/o Female with ESRD on Hemodialysis she had Dialysis today and was sent to Emergency room due to acute Rectal bleed, she started today with red blood in her stools, as Hematochezia no black stools, denied abdominal pain, vomiting. Discussed in the room with the patient's Mr. Jose Elias Miller, today stable awaiting for Colonoscopy. Objective Vital Signs Date Time Temp Pulse Resp B/P Pulse Ox O2 Delivery O2 Flow Rate FiO2 06/05/16 08:37 98.1 73 18 146/66 97 06/05/16 05:02 98.5 75 16 146/69 96 06/05/16 04:29 98.6 71 16 152/70 97 06/05/16 00:00 98.4 75 18 151/67 99 06/04/16 20:28 73 06/04/16 20:09 96 21 06/04/16 16:00 98.2 72 16 163/72 97 06/04/16 14:17 96.2 78 16 194/83 97 06/04/16 13:58 06/04/16 13:03 188/98 06/04/16 09:22 99 Room Air Result Diagram: 06/04/16 1925 06/04/16 0820 Imaging No Imaging studies performed Procedures status post Colonoscopy has Severe Diverticulosis noted in the Sigmoid Colon left Colon full of blood probable diverticular bleed, Internal hemorrhoids, Small internal Hemorrhoids external hemorrhoids Other Results Laboratory Tests Test 06/04/16 06/04/16 06/04/16 06/04/16 08:20 08:50 10:00 19:25 Sodium Level 137 MEQ/L Potassium Level 4.2 MEQ/L Chloride Level 100 MEQ/L Carbon Dioxide Level 23.6 MEQ/L Anion Gap 13 MEQ/L Blood Urea Nitrogen 28 MG/DL Creatinine 6.20 MG/DL Estimat Glomerular Filtration 7 ML/MIN Rate Random Glucose 109 MG/DL Calcium Level 9.5 MG/DL Total Bilirubin 0.5 MG/DL Aspartate Amino Transf 23 U/L (AST/SGOT) Alanine Aminotransferase 18 U/L (ALT/SGPT) Alkaline Phosphatase 93 U/L Total Protein 8.2 GM/DL Albumin 3.8 GM/DL White Blood Count 6.9 TH/MM3 Red Blood Count 3.76 MIL/MM3 Mean Corpuscular Volume 70.7 FL Mean Corpuscular Hemoglobin 24.4 PG Mean Corpuscular Hemoglobin 34.5 % Concent Red Cell Distribution Width 14.9 % Platelet Count 253 TH/MM3 Mean Platelet Volume 7.2 FL Neutrophils (%) (Auto) 85.2 % Lymphocytes (%) (Auto) 5.6 % Monocytes (%) (Auto) 5.0 % Eosinophils (%) (Auto) 3.4 % Basophils (%) (Auto) 0.8 % Neutrophils # (Auto) 5.9 TH/MM3 Lymphocytes # (Auto) 0.4 TH/MM3 Monocytes # (Auto) 0.3 TH/MM3 Eosinophils # (Auto) 0.2 TH/MM3 Basophils # (Auto) 0.1 TH/MM3 CBC Comment AUTO DIFF Differential Comment AUTO DIFF CONFIRMED Ovalocytes 1+ Prothrombin Time 10.7 SEC Prothromb Time International 1.0 RATIO Ratio Activated Partial 27.9 SEC Thromboplast Time Hemoglobin A1c 5.6 % Free Thyroxine 1.24 NG/DL Thyroid Stimulating Hormone 2.240 uIU/ML 3rd Gen Antibody Screen NEGATIVE Hemoglobin 7.6 GM/DL Hematocrit 24.1 % Test 06/05/16 04:14 Blood Type O POSITIVE Crossmatch Leukocyte-Reduced Red Blood Cells Blood Bank Comment Objective Remarks GENERAL: Well-developed elderly female in no acute distress. Awake, alert , oriented 3. SKIN: Warm and dry. HEAD: Atraumatic. Normocephalic. EYES: Pupils equal and round. No scleral icterus. No injection or drainage. ENT: No nasal bleeding or discharge. Mucous membranes pink and moist. NECK: Trachea midline. No JVD. CARDIOVASCULAR: Regular rate and rhythm. Systolic Murmur in all focus evaluated. RESPIRATORY: No accessory muscle use. Clear to auscultation. Breath sounds equal bilaterally. GASTROINTESTINAL: Abdomen soft, non-tender, nondistended. Hepatic and splenic margins not palpable. RECTAL EXAM: No masses or tenderness, stool is reddish brown, Hemoccult positive. MUSCULOSKELETAL: No obvious deformities. No clubbing. No cyanosis. No edema. NEUROLOGICAL: Awake and alert. No obvious cranial nerve deficits. Motor grossly within normal limits. Normal speech. PSYCHIATRIC: Appropriate mood and affect; insight and judgment normal. Medications and IVs Current Medications Medications (Trade) Dose Ordered Sig/Freda Route Start Time Stop Time Status Last Admin (NS Flush) 2 ml UNSCH PRN IVF 06/04/16 08:30 06/04/16 09:20 (Norvasc) 5 mg DAILY PO 06/05/16 09:00 06/05/16 08:01 (Pepcid) 10 mg BID PO 06/04/16 21:00 06/05/16 08:01 (Nephrocaps) 1 cap DAILY PO 06/05/16 09:00 06/05/16 08:00 (NS Flush) 2 ml UNSCH PRN FLUSH 06/04/16 11:00 (NS Flush) 2 ml BID FLUSH 06/04/16 21:00 06/04/16 22:20 (Zofran Inj) 4 mg Q6H PRN IVP 06/04/16 11:00 (Dulcolax Supp) 10 mg DAILY PRN [place] 06/04/16 11:00 (Colace) 100 mg Q12H PO 06/04/16 11:00 06/04/16 22:19 (Narcan Inj) 0.4 mg UNSCH PRN IV 06/04/16 11:00 (Protonix Inj) 40 mg Q12H IV PUSH 06/04/16 12:00 06/04/16 22:19 (Apresoline Inj) 10 mg Q6HR PRN IV PUSH 06/04/16 13:00 (Catapres) 0.1 mg Q6H PRN PO 06/04/16 15:00 06/04/16 15:06 Sevelamer Carbonate 800 mg 800 mg TIDAC PO 06/05/16 08:00 06/05/16 08:01 (NS 1000 ml Inj) 1,000 ml @ 0 mls/hr Q0M PRN IV 06/04/16 17:12 Heparin Sodium (Porcine) 8000 units 8,000 units UNSCH PRN IVF 06/04/16 17:15 Sodium Chloride 1,000 ml @ 200 mls/hr Q5H PRN IV 06/04/16 17:12 (NS 1000 ml Inj) 1,000 ml @ 0 mls/hr Q0M PRN IV 06/04/16 17:12 (Mannitol Inj) 12.5 gm UNSCH PRN IV 06/04/16 17:15 (Albumin 25% Inj) 25 gm UNSCH PRN IV 06/04/16 17:15 (NS Flush) 5 ml UNSCH PRN IVF 06/04/16 17:15 (Heparin Inj) UNSCH PRN .XX 06/04/16 17:15 (Gentamicin (Dialysis) Inj) 20 mg UNSCH PRN IV 06/04/16 17:15 (Zofran Inj) 4 mg UNSCH PRN IV 06/04/16 17:15 (Tylenol) 650 mg UNSCH PRN PO 06/04/16 17:15 (Benadryl) 25 mg UNSCH PRN PO 06/04/16 17:15 (Nitrostat Sl) 0.4 mg UNSCH PRN SL 06/04/16 17:15 (Catapres) 0.1 mg UNSCH PRN PO 06/04/16 17:15 (Epogen Inj) 10,000 units UNSCH PRN IV 06/04/16 17:15 (Gelfoam 12 Mm/7 Mm Top) 1 foam UNSCH PRN TOP 06/04/16 17:15 A/P Problem List: (1) Metabolic bone disease ICD Code: E88.9 (2) Anemia ICD Code: D64.9 (3) GI bleed ICD Code: K92.2 (4) ESRD (end stage renal disease) on dialysis ICD Code: N18.6 (5) HTN (hypertension) ICD Code: I10 Assessment and Plan 1. Rectal Bleed evident on Rectal Exam by ER specialist, Hemoglobin stable in 9, continue H and H every six hours, consult GI specialist. status post Colonoscopy has Severe Diverticulosis noted in the Sigmoid Colon left Colon full of blood probable diverticular bleed, Internal hemorrhoids, Small internal Hemorrhoids external hemorrhoids. recommended Benefiber, continue surveillance, yearly Hemoccult, high fiber diet no Seeds, nuts and Popcorn in diet. return for Colonoscopy in one year of sooner if continue to bleed. 2. ESRD on HD on MWF she had HD today, Nephrology specialist following. 3. Hypertension controlled continue Home medicines 4. Anemia on chronic disease Hemoglobin stable in 7.6 may need blood transfusion giving at this time two units of PRBCs in total received three units. DVT prophylaxis with SCDs Pharmacological Prophylaxis contraindicated due to acute GI bleed. Discussed with GI specialist doctor Doctor Jenny Green he wants the patient admitted to Intensive care unit and close follow up, continue H and H and if continue dropping her Hemoglobin continue blood transfusion and may need Angiography. PT consult No need to continue PT at Discharge. Code Status Full code. Discharge Planning when cleared by GI specialist. Cirilo Elaine MD Jun 05, 2016 08:50
--- NOTE | 2016-06-05 10:11 | HHI.NPPN ---
Subjective General Problems: Anemia Renal Failure: Chronic, End Stage Renal Disease Interval History Hemoglobin dropped, she is being transfused during my exam. Due for EGD/ colonoscopy today. (Raquel Farrell) Review of Systems Gastrointestinal Gastrointestinal: Blood/Tarry Stools (Raquel Farrell) Objective Data Data Vital Signs Date Time Temp Pulse Resp B/P Pulse Ox O2 Delivery O2 Flow Rate FiO2 06/05/16 09:05 98.3 72 18 150/68 98 06/05/16 08:37 98.1 73 18 146/66 97 06/05/16 08:00 98.2 71 16 151/66 96 06/05/16 05:02 98.5 75 16 146/69 96 06/05/16 04:29 98.6 71 16 152/70 97 06/05/16 00:00 98.4 75 18 151/67 99 06/04/16 20:28 73 06/04/16 20:09 96 21 06/04/16 16:00 98.2 72 16 163/72 97 06/04/16 14:17 96.2 78 16 194/83 97 06/04/16 13:58 06/04/16 13:03 188/98 (Raquel Farrell) -: 06/04/16 1925 06/04/16 0820 Physical Exam General Appearance: Well Developed, Well Nourished, No Acute Distress (Raquel Farrell) Throat Throat Exam: Oral Mucosa [place] & Moist (Raquel Farrell) Pulmonary Resp Exam: Clear Bilaterally, Breath Sounds Equal (Raquel Farrell) Cardiology CV Exam: Normal Sinus Rhythm, Good Perfusion (Raquel Farrell) Gastrointestinal/Abdomen GI Exam: Non-Tender, Bowel Sounds Present (Raquel Farrell) Musculoskeletal MS Exam: Joints Intact, Normal Tone (Raquel Farrell) Integumentary Skin Exam: Warm, Dry (Raquel Farrell) Extremeties Extremities Exam: No Edema, Pedal Pulses Palpable Extremeties Remarks left thigh AVG patent, + thrill/bruit (Raquel Farrell) Neurologic Neuro Exam: Alert, Awake, Oriented, Speech Clear, Moving All Extremities ( Raquel Farrell) Psychiatric Psych Exam: Appropriate Responses (Raquel Farrell) Assessment/Plan Problem List: (1) ESRD (end stage renal disease) on dialysis Plan: HD T--Wed, she is due tomorrow avoid IVF no electrolyte concerns she has patent AV graft for dialysis intermittent renal panel avoid gadolinium high protein diet (2) HTN (hypertension) Plan: resume home medications (3) Anemia Plan: epogen with HD iron profile pending ordered 2 units for transfusion today (4) Metabolic bone disease Plan: begin renvela (5) GI bleed Plan: GI following to have EGD/colonoscopy today unable to pass NG tube ordered blood transfusion (Raquel Farrell) Plan patient was seen and examined. Agree with above assessment and plan. (Kevin Jefferson MD) Raquel Farrell Jun 05, 2016 10:11 Kevin Jefferson MD Jun 05, 2016 17:31
[2016-06-05] MEDS ORDERED: LACTATED RINGER'S 1,000 ML BAG XX ONE (13:30)
[2016-06-05] MEDS ORDERED: PROPOFOL 200 MG/20 ML AMP IV ONE (14:17)
--- NOTE | 2016-06-05 14:43 | GIPROC ---
[facility] [address] [facility]. [facility], [address] EGD PROCEDURE REPORT EXAM DATE: 06/05/2016 PATIENT NAME: Yoly Miller MR #: [id number] BIRTHDATE: 1945 ATTENDING: Jenny Green MD ORDER #: [id number] SCRUB NURSE: Tanya Durbin STATUS: inpatient INDICATIONS: The patient is a 70 yr old female here for an EGD due to hematochezia and acute post hemorrhagic anemia PROCEDURE PERFORMED: EGD w/ biopsy MEDICATIONS: None and Per Anesthesia. TOPICAL ANESTHETIC: CONSENT: The patient understands the risks and benefits of the procedure and understands that these risks include, but are not limited to: sedation, allergic reaction, infection, perforation and/or bleeding. Alternative means of evaluation and treatment include, among others: physical exam, x-rays, and/or surgical intervention. The patient elects to proceed with this endoscopic procedure. medical equipment was checked for proper function. Hand hygiene and appropriate measures for infection prevention was taken. After the risks, benefits and alternatives of the procedure were thoroughly explained, Informed consent was verified, confirmed and timeout was successfully executed by the treatment team. The patient was anesthetized with topical anesthesia and the EC-[id number] (Pedi C) and [id number] endoscope was introduced through the mouth and advanced to the second portion of the duodenum. Retroflexed views revealed no abnormalities The gastroscope was then slowly withdrawn and removed. ESOPHAGUS: There was LA Class A esophagitis noted. STOMACH: There was erythematous severe gastritis in the gastric antrum. A biopsy was performed using cold forceps. Sample sent for histology. ADVERSE EVENTS: There were no complications. IMPRESSIONS: 1. There was LA Class A esophagitis noted 2. There was erythematous gastritis in the gastric antrum; biopsy was performed 3. Retroflexed views revealed no abnormalities RECOMMENDATIONS: 1. Await biopsy results. Biopsy results will not be ready for 7-10 days. If you don't hear from us in two weeks, call our office for biopsy results. 2. Anti-reflux regimen 3. Continue PPI PATIENT CONDITION: stable DISPOSITION: Inpatient REPEAT EXAM: Return 3 years EGD Jenny Green MD eSigned: Jenny Green MD 06/05/2016 2:43 PM cc:
--- NOTE | 2016-06-05 14:47 | GIPROC ---
[facility] [address] [facility]. [facility], [address] COLONOSCOPY PROCEDURE REPORT EXAM DATE: 06/05/2016 PATIENT NAME: Yoly Miller MR #: [id number] BIRTHDATE: 1945 ENDOSCOPIST: Jenny Green MD ORDER #: [id number] [employer] INSTRUCTOR: Tanya Durbin RN STATUS: inpatient INDICATIONS: The patient is a 70 yr old female here for a colonoscopy due to hematochezia and iron deficiency anemia PROCEDURE PERFORMED: Colonoscopy, diagnostic MEDICATIONS: None and Per Anesthesia. PREP QUALITY: The [place] Bowel Prep Score was Right colon 1, Mid colon 2, and Left colon 2. Total = 5. PREP TYPE:GoLytely ESTIMATED BLOOD LOSS: None CONSENT: The patient understands the risks and benefits of the procedure and understands that these risks include, but are not limited to: sedation, allergic reaction, infection, perforation and/or bleeding. Alternative means of evaluation and treatment include, among others: physical exam, x-rays, and/or surgical intervention. The patient elects to proceed with this endoscopic procedure. medical equipment was checked for proper function. Hand hygiene and appropriate measures for infection prevention was taken. After the risks, benefits and alternatives of the procedure were thoroughly explained, Informed consent was verified, confirmed and timeout was successfully executed by the treatment team. A digital exam revealed external hemorrhoids The Pentax EC-3490Li endoscope was introduced through the anus and advanced to the cecum, which was identified by both the appendix and ileocecal valve. The instrument was then slowly withdrawn as the colon was fully examined. COLON FINDINGS: There was severe diverticulosis noted in the sigmoid colon with associated tortuosity. No bleeding was noted from the diverticulosis. L colon full of blood. Probable diverticular bleed. Retroflexed views revealed internal hemorrhoids and Retroflexed views revealed small internal hemorrhoids The scope was then completely withdrawn from the patient and the procedure terminated. PROCEDURE WITHDRAWAL TIME:7minutes ADVERSE EVENTS: There were no complications. IMPRESSIONS: 1. There was severe diverticulosis noted in the sigmoid colon 2. L colon full of blood. Probable diverticular bleed 3. Retroflexed views revealed internal hemorrhoids 4. Retroflexed views revealed small internal hemorrhoids 5. Revealed external hemorrhoids RECOMMENDATIONS: 1. Benefiber 2 tsp daily 2. Continue surveillance 3. Yearly hemoccult 4. High fiber diet 5. No seeds, nuts and popcorn in diet RECALL: Return 1 year Colonoscopy Or sooner if continues to bleed. Jenny Green MD eSigned: Jenny Green MD 06/05/2016 2:46 PM cc: PATIENT NAME: Yoly Miller MR#: [id number]
--- NOTE | 2016-06-05 15:45 | EKG ---
Date Performed: 06/04/2016 Time Performed: 16:24:52 PTAGE: 70 years EKG: Sinus rhythm NORMAL ECG PREVIOUS TRACING : 08/28/2012 02.09 Compared to prior tracing no significant change DOCTOR: Laurie Narvaez Interpretating Date/Time 06/05/2016 15:44:48
[2016-06-05] MEDS: PANTOPRAZOLE SODIUM 40 MG VIAL IV PUSH SCH ×2 (16:55→23:20)
[2016-06-05] MEDS: DOCUSATE SODIUM 100 MG CAP PO SCH ×2 (16:55→23:00)
[2016-06-05 18:53] LABS: BASOPHIL # 0.1 TH/MM3 (0-0.2); BASOPHIL % 0.7 % (0.0-2.0); EOSINOPHIL # 0.2 TH/MM3 (0-0.4); EOSINOPHIL % 2.8 % (0.0-4.0); HEMATOCRIT 36.6 % (35.0-46.0); HEMO FLAGS DIFF FINAL; LYMPH % 7.3 % (9.0-44.0); LYMPHOCYTE # 0.6 TH/MM3 (1.0-4.8); MEAN CELL VOLUME 76.6 FL (80.0-100.0); MEAN CORPUSCULAR HEMOGLOBIN 25.8 PG (27.0-34.0); MEAN CORPUSCULAR HGB CONC 33.6 % (32.0-36.0); MONO % 6.2 % (0.0-8.0); PLATELET COUNT 214 TH/MM3 (150-450); RED BLOOD COUNT 4.78 MIL/MM3 (4.00-5.30); RED CELL DISTRIBUTION WIDTH 18.3 % (11.6-17.2); WHITE BLOOD COUNT 8.4 TH/MM3 (4.0-11.0)
[2016-06-05 19:10] LABS: PROTHROMBIN TIME - PATIENT 10.8 SEC (9.8-11.6)
[2016-06-05 19:23] LABS: ANION GAP 13 MEQ/L (5-15); BLOOD UREA NITROGEN 40 MG/DL (7-18); CHLORIDE 106 MEQ/L (98-107); GLOMERULAR FILTRATION RATE 4 ML/MIN (>89); POTASSIUM 4.7 MEQ/L (3.5-5.1); SODIUM (NA) 139 MEQ/L (136-145); TRANSFERRIN IRON PROFILE 119 MG/DL (200-360)
[2016-06-05 19:44] LABS: CALCIUM-PROTEIN CORRECTED 7.6 MG/DL (8.5-10.1)
[2016-06-05] MEDS: SODIUM CHLORIDE 0.9% FLUSH 5 ML FLUSH FLUSH SCH (19:57)
[2016-06-06] VITALS (10 sets, daily range): BP systolic 119–189; BP diastolic 60–89; PULSE 76–86; RESP 17–27; TEMP 97.6–98.9; O2SAT 96–98
[2016-06-06 05:12] LABS: AUTOMATED NEUTROPHIL # 5.4 TH/MM3 (1.8-7.7); BASOPHIL # 0.1 TH/MM3 (0-0.2); BASOPHIL % 0.7 % (0.0-2.0); EOSINOPHIL # 0.4 TH/MM3 (0-0.4); EOSINOPHIL % 5.5 % (0.0-4.0); HEMO FLAGS DIFF FINAL; LYMPHOCYTE # 0.6 TH/MM3 (1.0-4.8); MEAN CELL VOLUME 76.9 FL (80.0-100.0); MEAN CORPUSCULAR HEMOGLOBIN 25.8 PG (27.0-34.0); MEAN CORPUSCULAR HGB CONC 33.6 % (32.0-36.0); MONO % 8.3 % (0.0-8.0); NEUT % 76.5 % (16.0-70.0); PLATELET COUNT 231 TH/MM3 (150-450); RED BLOOD COUNT 4.69 MIL/MM3 (4.00-5.30); RED CELL DISTRIBUTION WIDTH 18.1 % (11.6-17.2)
[2016-06-06 05:44] LABS: BICARBONATE 17.3 MEQ/L (21.0-32.0); POTASSIUM 4.5 MEQ/L (3.5-5.1)
[2016-06-06 05:58] LABS: CALCIUM-PROTEIN CORRECTED 7.8 MG/DL (8.5-10.1)
[2016-06-06] MEDS: FAMOTIDINE 20 MG TAB PO SCH ×2 (08:52→21:48)
[2016-06-06] MEDS: amLODIPine BESYLATE 5 MG TAB PO SCH (08:52)
[2016-06-06] MEDS: SEVELAMER CARBONATE 800 MG TAB PO SCH ×3 (08:52→17:18)
[2016-06-06] MEDS: VITAMIN B CMPLX/VITC/FOLIC AC CAP PO SCH (08:52)
[2016-06-06] MEDS: SODIUM CHLORIDE 0.9% FLUSH 5 ML FLUSH FLUSH SCH ×2 (08:52→21:48)
--- NOTE | 2016-06-06 10:05 | HHI.PR ---
Subjective Remarks This is a pleasant 70 y/o Female with ESRD on Hemodialysis she had Dialysis today and was sent to Emergency room due to acute Rectal bleed, she started today with red blood in her stools, as Hematochezia no black stools, denied abdominal pain, vomiting. Stable discussed with patient and nurse Miss Stevens in the room, no further GI bleed, stable Hemoglobin now in 12.1, tolerating diet. Objective Vital Signs Date Time Temp Pulse Resp B/P Pulse Ox O2 Delivery O2 Flow Rate FiO2 06/06/16 08:09 97 06/06/16 06:00 84 06/06/16 04:00 81 06/06/16 04:00 98.9 81 24 156/74 98 06/06/16 02:00 79 06/06/16 00:00 98.9 78 27 119/60 97 06/06/16 00:00 78 06/05/16 22:11 72 06/05/16 21:30 99.0 72 25 165/85 98 06/05/16 20:00 98.9 75 16 144/68 96 06/05/16 16:00 97.9 75 18 158/76 99 06/05/16 14:48 78 16 176/73 99 06/05/16 14:43 78 16 174/71 100 06/05/16 14:38 97.5 77 16 153/67 93 06/05/16 10:05 98 I/O 06/05/16 06/05/16 06/05/16 06/06/16 06/06/16 06/06/16 07:00 15:00 23:00 07:00 15:00 23:00 Intake Total 1210 ml 240 ml 100 ml Balance 1210 ml 240 ml 100 ml Intake Oral 960 ml 240 ml 100 ml IV Total 250 ml # Voids 3 0 # Bowel Movements 2 Result Diagram: 06/06/16 0359 06/06/16 0359 Imaging No new Imaging studies performed. Procedures status post Colonoscopy has Severe Diverticulosis noted in the Sigmoid Colon left Colon full of blood probable diverticular bleed, Internal hemorrhoids, Small internal Hemorrhoids external hemorrhoids Other Results Laboratory Tests Test 06/04/16 06/04/16 06/05/16 06/05/16 08:20 08:50 14:29 18:45 Total Bilirubin 0.5 MG/DL Aspartate Amino Transf 23 U/L (AST/SGOT) Alanine Aminotransferase 18 U/L (ALT/SGPT) Alkaline Phosphatase 93 U/L Albumin 3.8 GM/DL Ovalocytes 1+ Activated Partial 27.9 SEC Thromboplast Time Hemoglobin A1c 5.6 % Free Thyroxine 1.24 NG/DL Thyroid Stimulating Hormone 2.240 uIU/ML 3rd Gen Blood Type O POSITIVE Antibody Screen NEGATIVE Crossmatch Leukocyte-Reduced Red Blood Cells Blood Bank Comment Prothrombin Time 10.8 SEC Prothromb Time International 1.0 RATIO Ratio Phosphorus Level 4.0 MG/DL Iron Level 44 MCG/DL Total Iron Binding Capacity 167 MCG/DL Percent Iron Saturation 26.4 % Test 06/05/16 06/06/16 21:10 03:59 Nasal Screen MRSA (PCR) NEGATIVE White Blood Count 7.0 TH/MM3 Red Blood Count 4.69 MIL/MM3 Hemoglobin 12.1 GM/DL Hematocrit 36.0 % Mean Corpuscular Volume 76.9 FL Mean Corpuscular Hemoglobin 25.8 PG Mean Corpuscular Hemoglobin 33.6 % Concent Red Cell Distribution Width 18.1 % Platelet Count 231 TH/MM3 Mean Platelet Volume 7.4 FL Neutrophils (%) (Auto) 76.5 % Lymphocytes (%) (Auto) 9.0 % Monocytes (%) (Auto) 8.3 % Eosinophils (%) (Auto) 5.5 % Basophils (%) (Auto) 0.7 % Neutrophils # (Auto) 5.4 TH/MM3 Lymphocytes # (Auto) 0.6 TH/MM3 Monocytes # (Auto) 0.6 TH/MM3 Eosinophils # (Auto) 0.4 TH/MM3 Basophils # (Auto) 0.1 TH/MM3 CBC Comment DIFF FINAL Differential Comment Sodium Level 139 MEQ/L Potassium Level 4.5 MEQ/L Chloride Level 106 MEQ/L Carbon Dioxide Level 17.3 MEQ/L Anion Gap 16 MEQ/L Blood Urea Nitrogen 46 MG/DL Creatinine 9.52 MG/DL Estimat Glomerular Filtration 4 ML/MIN Rate Random Glucose 58 MG/DL Calcium Level 7.4 MG/DL Protein Corrected Calcium 7.8 MG/DL Total Protein 6.4 GM/DL Objective Remarks GENERAL: Well-developed elderly female in no acute distress. Awake, alert , oriented 3. SKIN: Warm and dry. HEAD: Atraumatic. Normocephalic. EYES: Pupils equal and round. No scleral icterus. No injection or drainage. ENT: No nasal bleeding or discharge. Mucous membranes pink and moist. NECK: Trachea midline. No JVD. CARDIOVASCULAR: Regular rate and rhythm. Systolic Murmur in all focus evaluated. RESPIRATORY: No accessory muscle use. Clear to auscultation. Breath sounds equal bilaterally. GASTROINTESTINAL: Abdomen soft, non-tender, nondistended. Hepatic and splenic margins not palpable. RECTAL EXAM: No masses or tenderness, stool is reddish brown, Hemoccult positive. MUSCULOSKELETAL: No obvious deformities. No clubbing. No cyanosis. No edema. NEUROLOGICAL: Awake and alert. No obvious cranial nerve deficits. Motor grossly within normal limits. Normal speech. PSYCHIATRIC: Appropriate mood and affect; insight and judgment normal. Medications and IVs Current Medications Medications (Trade) Dose Ordered Sig/Freda Route Start Time Stop Time Status Last Admin (NS Flush) 2 ml UNSCH PRN IVF 06/04/16 08:30 06/04/16 09:20 (Norvasc) 5 mg DAILY PO 06/05/16 09:00 06/06/16 08:52 (Pepcid) 10 mg BID PO 06/04/16 21:00 06/06/16 08:52 (Nephrocaps) 1 cap DAILY PO 06/05/16 09:00 06/06/16 08:52 (NS Flush) 2 ml UNSCH PRN FLUSH 06/04/16 11:00 06/05/16 23:48 (NS Flush) 2 ml BID FLUSH 06/04/16 21:00 06/06/16 08:52 (Zofran Inj) 4 mg Q6H PRN IVP 06/04/16 11:00 (Dulcolax Supp) 10 mg DAILY PRN [place] 06/04/16 11:00 (Colace) 100 mg Q12H PO 06/04/16 11:00 06/05/16 16:55 (Narcan Inj) 0.4 mg UNSCH PRN IV 06/04/16 11:00 (Protonix Inj) 40 mg Q12H IV PUSH 06/04/16 12:00 06/05/16 23:20 (Apresoline Inj) 10 mg Q6HR PRN IV PUSH 06/04/16 13:00 06/05/16 23:47 (Catapres) 0.1 mg Q6H PRN PO 06/04/16 15:00 06/04/16 15:06 Sevelamer Carbonate 800 mg 800 mg TIDAC PO 06/05/16 08:00 06/06/16 08:52 (NS 1000 ml Inj) 1,000 ml @ 0 mls/hr Q0M PRN IV 06/04/16 17:12 Heparin Sodium (Porcine) 8000 units 8,000 units UNSCH PRN IVF 06/04/16 17:15 Sodium Chloride 1,000 ml @ 200 mls/hr Q5H PRN IV 06/04/16 17:12 (NS 1000 ml Inj) 1,000 ml @ 0 mls/hr Q0M PRN IV 06/04/16 17:12 (Mannitol Inj) 12.5 gm UNSCH PRN IV 06/04/16 17:15 (Albumin 25% Inj) 25 gm UNSCH PRN IV 06/04/16 17:15 (NS Flush) 5 ml UNSCH PRN IVF 06/04/16 17:15 (Heparin Inj) UNSCH PRN .XX 06/04/16 17:15 (Gentamicin (Dialysis) Inj) 20 mg UNSCH PRN IV 06/04/16 17:15 (Zofran Inj) 4 mg UNSCH PRN IV 06/04/16 17:15 (Tylenol) 650 mg UNSCH PRN PO 06/04/16 17:15 (Benadryl) 25 mg UNSCH PRN PO 06/04/16 17:15 (Nitrostat Sl) 0.4 mg UNSCH PRN SL 06/04/16 17:15 (Catapres) 0.1 mg UNSCH PRN PO 06/04/16 17:15 (Epogen Inj) 10,000 units UNSCH PRN IV 06/04/16 17:15 (Gelfoam 12 Mm/7 Mm Top) 1 foam UNSCH PRN TOP 06/04/16 17:15 A/P Problem List: (1) Metabolic bone disease ICD Code: E88.9 (2) Anemia ICD Code: D64.9 (3) GI bleed ICD Code: K92.2 (4) ESRD (end stage renal disease) on dialysis ICD Code: N18.6 (5) HTN (hypertension) ICD Code: I10 Assessment and Plan 1. Rectal Bleed evident on Rectal Exam by ER specialist, Hemoglobin stable in 9, continue H and H every six hours, consult GI specialist. status post Colonoscopy has Severe Diverticulosis noted in the Sigmoid Colon left Colon full of blood probable diverticular bleed, Internal hemorrhoids, Small internal Hemorrhoids external hemorrhoids. recommended Benefiber, continue surveillance, yearly Hemoccult, high fiber diet no Seeds, nuts and Popcorn in diet. return for Colonoscopy in one year of sooner if continue to bleed. Stable no further Rectal bleed. transferred to Intensive Care unit after Discuss with Doctor Peter 2. ESRD on HD on Wednesday, and Wednesday for HD today, Nephrology specialist following. 3. Hypertension mild uncontrol continue home medicines and follow. 4. Anemia on chronic disease Hemoglobin stable in 7.6 may need blood transfusion giving at this time two units of PRBCs in total received three units. Hemoglobin today 12.1 DVT prophylaxis with SCDs Pharmacological Prophylaxis contraindicated due to acute GI bleed. Transfer to Med/Surg Okay to discharge once cleared by GI specialist. Code Status Full code. Discharge Planning when cleared by GI specialist. Cirilo Elaine MD Jun 06, 2016 10:05
--- NOTE | 2016-06-06 10:44 | HHI.NPPN ---
Subjective General Problems: Anemia Renal Failure: Chronic, End Stage Renal Disease Additional Remarks Patient is alert, no SOB, no abd. pain. Review of Systems Gastrointestinal Gastrointestinal: Blood/Tarry Stools Objective Data Data 06/05/16 06/06/16 19:00 07:00 Intake Total 1210 ml 340 ml Balance 1210 ml 340 ml Intake Oral 960 ml 340 ml IV Total 250 ml # Voids 3 0 Vital Signs Date Time Temp Pulse Resp B/P Pulse Ox O2 Delivery O2 Flow Rate FiO2 06/06/16 10:00 86 06/06/16 08:09 97 06/06/16 08:00 98.5 76 18 164/76 98 06/06/16 08:00 76 06/06/16 06:00 84 06/06/16 04:00 81 06/06/16 04:00 98.9 81 24 156/74 98 06/06/16 02:00 79 06/06/16 00:00 98.9 78 27 119/60 97 06/06/16 00:00 78 06/05/16 22:11 72 06/05/16 21:30 99.0 72 25 165/85 98 06/05/16 20:00 98.9 75 16 144/68 96 06/05/16 16:00 97.9 75 18 158/76 99 06/05/16 14:48 78 16 176/73 99 06/05/16 14:43 78 16 174/71 100 06/05/16 14:38 97.5 77 16 153/67 93 -: 06/06/16 0359 06/06/16 0359 Physical Exam General Appearance: Well Developed, Well Nourished, No Acute Distress Throat Throat Exam: Oral Mucosa [place] & Moist Pulmonary Resp Exam: Clear Bilaterally, Breath Sounds Equal Cardiology CV Exam: Normal Sinus Rhythm, Good Perfusion Gastrointestinal/Abdomen GI Exam: Non-Tender, Bowel Sounds Present Musculoskeletal MS Exam: Joints Intact, Normal Tone Integumentary Skin Exam: Warm, Dry Extremeties Extremities Exam: No Edema, Pedal Pulses Palpable Neurologic Neuro Exam: Alert, Awake, Oriented, Speech Clear, Moving All Extremities Psychiatric Psych Exam: Appropriate Responses Assessment/Plan Problem List: (1) ESRD (end stage renal disease) on dialysis Plan: HD T--Wed, avoid IVF no electrolyte concerns she has patent AV graft for dialysis intermittent renal panel avoid gadolinium high protein diet . HD today, remove fluid as tolerated. (2) HTN (hypertension) Plan: resume home medications (3) Anemia Plan: Epogen with HD iron profile pending Post transfusion. Hgb. now stable, GI following. (4) Metabolic bone disease Plan: begin renvela (5) GI bleed Plan: GI following to have EGD/colonoscopy today unable to pass NG tube ordered blood transfusion Plan patient was seen and examined. Agree with above assessment and plan. Lindsey Hopper MD Jun 06, 2016 10:44
[2016-06-06] MEDS: DOCUSATE SODIUM 100 MG CAP PO SCH ×2 (11:00→23:00)
[2016-06-06] MEDS: PANTOPRAZOLE SODIUM 40 MG VIAL IV PUSH SCH (12:49)
--- NOTE | 2016-06-06 15:47 | HHI.GIFU ---
Subjective Remarks Seen in HD. Had one episode of rectal bleeding earlier today- small amount with red blood. No further episodes. No n/v. No abdominal pain. (Susan Davila) Objective Vitals I&O Vital Signs Date Time Temp Pulse Resp B/P Pulse Ox O2 Delivery O2 Flow Rate FiO2 06/06/16 12:00 98.1 79 20 164/78 98 06/06/16 12:00 79 06/06/16 10:00 86 06/06/16 08:09 97 06/06/16 08:00 98.5 76 18 164/76 98 06/06/16 08:00 76 06/06/16 06:00 84 06/06/16 04:00 81 06/06/16 04:00 98.9 81 24 156/74 98 06/06/16 02:00 79 06/06/16 00:00 98.9 78 27 119/60 97 06/06/16 00:00 78 06/05/16 22:11 72 06/05/16 21:30 99.0 72 25 165/85 98 06/05/16 20:00 98.9 75 16 144/68 96 06/05/16 16:00 97.9 75 18 158/76 99 I/O 06/05/16 06/05/16 06/05/16 06/06/16 06/06/16 06/06/16 07:00 15:00 23:00 07:00 15:00 23:00 Intake Total 1210 ml 240 ml 100 ml Balance 1210 ml 240 ml 100 ml Intake Oral 960 ml 240 ml 100 ml IV Total 250 ml # Voids 3 0 # Bowel Movements 2 Laboratory Laboratory Tests Test 06/05/16 06/05/16 06/06/16 18:45 21:10 03:59 White Blood Count 8.4 7.0 Red Blood Count 4.78 4.69 Hemoglobin 12.3 12.1 Hematocrit 36.6 36.0 Mean Corpuscular Volume 76.6 76.9 Mean Corpuscular Hemoglobin 25.8 25.8 Mean Corpuscular Hemoglobin 33.6 33.6 Concent Red Cell Distribution Width 18.3 18.1 Platelet Count 214 231 Mean Platelet Volume 7.2 7.4 Neutrophils (%) (Auto) 83.0 76.5 Lymphocytes (%) (Auto) 7.3 9.0 Monocytes (%) (Auto) 6.2 8.3 Eosinophils (%) (Auto) 2.8 5.5 Basophils (%) (Auto) 0.7 0.7 Neutrophils # (Auto) 7.0 5.4 Lymphocytes # (Auto) 0.6 0.6 Monocytes # (Auto) 0.5 0.6 Eosinophils # (Auto) 0.2 0.4 Basophils # (Auto) 0.1 0.1 CBC Comment DIFF FINAL DIFF FINAL Differential Comment Prothrombin Time 10.8 Prothromb Time International 1.0 Ratio Sodium Level 139 139 Potassium Level 4.7 4.5 Chloride Level 106 106 Carbon Dioxide Level 20.0 17.3 Anion Gap 13 16 Blood Urea Nitrogen 40 46 Creatinine 9.01 9.52 Estimat Glomerular Filtration 4 4 Rate Random Glucose 88 58 Calcium Level 7.4 7.4 Protein Corrected Calcium 7.6 7.8 Phosphorus Level 4.0 Iron Level 44 Total Iron Binding Capacity 167 Percent Iron Saturation 26.4 Total Protein 6.8 6.4 Nasal Screen MRSA (PCR) NEGATIVE Physical Exam HEENT: Normocephalic; atraumatic; no jaundice. CHEST: CTA CARDIAC: RRR ABDOMEN: Soft, nondistended, nontender; no hepatosplenomegaly; bowel sounds are present in all four quadrants. EXTREMITIES: No clubbing, cyanosis, or edema. SKIN: Normal; no rash; no jaundice. E[employer]ING [employer]ER: No focal deficits; alert and oriented times three. (Susan Davila) Assessment and Plan Plan ASSESSMENT: - GIB, Lower with BRBPR. Pt denies any n/v, abdominal pain, constipation, diarrhea. 2 episodes of large amount bright red blood, independent from stool. Pt's daughter believes patient has remote hx of PUD and does take Zantac at home, although she is not currently having symptoms with this. Denies hx of egd/colonoscopy. Daughter Robbie Frederick . S/P EGD/Colonoscopy (06/05/16)----> 1. There was LA Class A esophagitis noted, 2. There was erythematous gastritis in the gastric antrum; biopsy was performed, 3. Retroflexed views revealed no abnormalities. 1. There was severe diverticulosis noted in the sigmoid colon 2. L colon full of blood. Probable diverticular bleed 3. Retroflexed views revealed internal hemorrhoids 4. Retroflexed views revealed small internal hemorrhoids 5. Revealed external hemorrhoids. One episode of rectal bleeding earlier today- small amount of red blood. HH is stable .. PPI - Anemia. S/P 3 units PRBC. HH . - ESRD, HD Tuesdays, , Saturdays per renal. - HTN per primary PLAN: - SARAH- High fiber - Benefiber 2 tsp daily - No seeds, nuts and popcorn in diet - PPI - Monitor hh - Transfuse as necessary - Rpt Colonoscopy 1 year Colonoscopy Or sooner if continues to bleed. - Supportive care - Further recommendations to follow based on results of above - Pt seen and examined by Dr. Beyer and myself and this note is written on his behalf (Susan Davila) Physician Comments Patient seen and examined Agree with above Continue with current supportive care Monitor labs (Tha Beyer MD) Susan Davila Jun 06, 2016 15:47 Tha Beyer MD Jun 06, 2016 17:10
[2016-06-06] MEDS: cloNIDine HCL 0.1 MG TAB PO PRN (17:18)
[2016-06-06 20:32] LABS: HEMATOCRIT 33.7 % (35.0-46.0); REVIEW FLAG FINAL
[2016-06-07 00:09] VITALS: BP 145/75; PULSE 73; RESP 18; TEMP 97.8; O2SAT 96
[2016-06-07] MEDS: PANTOPRAZOLE SODIUM 40 MG VIAL IV PUSH SCH ×2 (00:14→11:41)
[2016-06-07 05:49] LABS: AUTOMATED NEUTROPHIL # 4.9 TH/MM3 (1.8-7.7); BASOPHIL % 0.7 % (0.0-2.0); EOSINOPHIL # 0.1 TH/MM3 (0-0.4); EOSINOPHIL % 1.7 % (0.0-4.0); HEMATOCRIT 34.3 % (35.0-46.0); HEMO FLAGS DIFF FINAL; LYMPH % 14.1 % (9.0-44.0); LYMPHOCYTE # 0.9 TH/MM3 (1.0-4.8); MEAN CELL VOLUME 75.7 FL (80.0-100.0); MEAN CORPUSCULAR HEMOGLOBIN 25.7 PG (27.0-34.0); MEAN CORPUSCULAR HGB CONC 33.9 % (32.0-36.0); MONO % 8.7 % (0.0-8.0); NEUT % 74.8 % (16.0-70.0); PLATELET COUNT 191 TH/MM3 (150-450); RED BLOOD COUNT 4.53 MIL/MM3 (4.00-5.30); RED CELL DISTRIBUTION WIDTH 18.7 % (11.6-17.2); WHITE BLOOD COUNT 6.6 TH/MM3 (4.0-11.0)
[2016-06-07 08:00] VITALS: BP 165/78; PULSE 74; RESP 18; TEMP 97.3; O2SAT 96
[2016-06-07 08:03] VITALS: O2SAT 98
[2016-06-07] MEDS ORDERED: PILL SPLITTER OTHER PRN (08:45)
--- NOTE | 2016-06-07 09:00 | HHI.PR ---
Subjective Remarks This is a pleasant 70 y/o Female with ESRD on Hemodialysis she had Dialysis today and was sent to Emergency room due to acute Rectal bleed, she started today with red blood in her stools, as Hematochezia no black stools, denied abdominal pain, vomiting. Stable discussed with patient and nurse Miss Stevens in the room, no further GI bleed, stable Hemoglobin now in 12.1, tolerating diet. 06/07 Seen in her bedroom, stable had a bowel movement with some blood in it, was called GI Specialist Doctor Pepito Almazan El-sayed he states the patient will continue with this kind of stools for some days but her Hemoglobin is stable and can be discharge at this time. I tried to call her Daughter Miss Robbie Miller to the phone number in EMR [phone] but she did not answer Objective Vital Signs Date Time Temp Pulse Resp B/P Pulse Ox O2 Delivery O2 Flow Rate FiO2 06/07/16 08:00 97.3 74 18 165/78 96 06/07/16 00:09 97.8 73 18 145/75 96 06/06/16 20:31 97.6 81 17 146/75 96 06/06/16 17:20 98.1 83 20 189/89 97 06/06/16 12:00 98.1 79 20 164/78 98 06/06/16 12:00 79 06/06/16 10:00 86 I/O 06/06/16 06/06/16 06/06/16 06/07/16 06/07/16 06/07/16 07:00 15:00 23:00 07:00 15:00 23:00 Intake Total 100 ml 360 ml 280 ml Output Total 2100 ml Balance 100 ml -1740 ml 280 ml Intake Oral 100 ml 360 ml 280 ml IV Total 0 ml 0 ml Output Stool Total 100 ml Hemodialysis 2000 ml # Voids 0 0 0 # Bowel Movements 2 1 Result Diagram: 06/07/16 0429 06/06/16 0359 Imaging No Imaging studies. Procedures status post Colonoscopy has Severe Diverticulosis noted in the Sigmoid Colon left Colon full of blood probable diverticular bleed, Internal hemorrhoids, Small internal Hemorrhoids external hemorrhoids Other Results Laboratory Tests Test 06/04/16 06/04/16 06/05/16 06/05/16 08:20 08:50 14:29 18:45 Total Bilirubin 0.5 MG/DL Aspartate Amino Transf 23 U/L (AST/SGOT) Alanine Aminotransferase 18 U/L (ALT/SGPT) Alkaline Phosphatase 93 U/L Albumin 3.8 GM/DL Ovalocytes 1+ Activated Partial 27.9 SEC Thromboplast Time Hemoglobin A1c 5.6 % Free Thyroxine 1.24 NG/DL Thyroid Stimulating Hormone 2.240 uIU/ML 3rd Gen Blood Type O POSITIVE Antibody Screen NEGATIVE Crossmatch Leukocyte-Reduced Red Blood Cells Blood Bank Comment Prothrombin Time 10.8 SEC Prothromb Time International 1.0 RATIO Ratio Phosphorus Level 4.0 MG/DL Iron Level 44 MCG/DL Total Iron Binding Capacity 167 MCG/DL Percent Iron Saturation 26.4 % Test 06/05/16 06/06/16 06/07/16 21:10 03:59 04:29 Nasal Screen MRSA (PCR) NEGATIVE Sodium Level 139 MEQ/L Potassium Level 4.5 MEQ/L Chloride Level 106 MEQ/L Carbon Dioxide Level 17.3 MEQ/L Anion Gap 16 MEQ/L Blood Urea Nitrogen 46 MG/DL Creatinine 9.52 MG/DL Estimat Glomerular Filtration 4 ML/MIN Rate Random Glucose 58 MG/DL Calcium Level 7.4 MG/DL Protein Corrected Calcium 7.8 MG/DL Total Protein 6.4 GM/DL White Blood Count 6.6 TH/MM3 Red Blood Count 4.53 MIL/MM3 Hemoglobin 11.6 GM/DL Hematocrit 34.3 % Mean Corpuscular Volume 75.7 FL Mean Corpuscular Hemoglobin 25.7 PG Mean Corpuscular Hemoglobin 33.9 % Concent Red Cell Distribution Width 18.7 % Platelet Count 191 TH/MM3 Mean Platelet Volume 7.5 FL Neutrophils (%) (Auto) 74.8 % Lymphocytes (%) (Auto) 14.1 % Monocytes (%) (Auto) 8.7 % Eosinophils (%) (Auto) 1.7 % Basophils (%) (Auto) 0.7 % Neutrophils # (Auto) 4.9 TH/MM3 Lymphocytes # (Auto) 0.9 TH/MM3 Monocytes # (Auto) 0.6 TH/MM3 Eosinophils # (Auto) 0.1 TH/MM3 Basophils # (Auto) 0.0 TH/MM3 CBC Comment DIFF FINAL Differential Comment Objective Remarks GENERAL: Well-developed elderly female in no acute distress. Awake, alert , oriented 3. SKIN: Warm and dry. HEAD: Atraumatic. Normocephalic. EYES: Pupils equal and round. No scleral icterus. No injection or drainage. ENT: No nasal bleeding or discharge. Mucous membranes pink and moist. NECK: Trachea midline. No JVD. CARDIOVASCULAR: Regular rate and rhythm. Systolic Murmur in all focus evaluated. RESPIRATORY: No accessory muscle use. Clear to auscultation. Breath sounds equal bilaterally. GASTROINTESTINAL: Abdomen soft, non-tender, nondistended. Hepatic and splenic margins not palpable. RECTAL EXAM: No masses or tenderness, stool is reddish brown, Hemoccult positive. MUSCULOSKELETAL: No obvious deformities. No clubbing. No cyanosis. No edema. NEUROLOGICAL: Awake and alert. No obvious cranial nerve deficits. Motor grossly within normal limits. Normal speech. PSYCHIATRIC: Appropriate mood and affect; insight and judgment normal. Medications and IVs Current Medications Medications (Trade) Dose Ordered Sig/Freda Route Start Time Stop Time Status Last Admin (NS Flush) 2 ml UNSCH PRN IVF 06/04/16 08:30 06/04/16 09:20 (Norvasc) 5 mg DAILY PO 06/05/16 09:00 06/06/16 08:52 (Pepcid) 10 mg BID PO 06/04/16 21:00 06/06/16 21:48 (Nephrocaps) 1 cap DAILY PO 06/05/16 09:00 06/06/16 08:52 (NS Flush) 2 ml UNSCH PRN FLUSH 06/04/16 11:00 06/05/16 23:48 (NS Flush) 2 ml BID FLUSH 06/04/16 21:00 06/06/16 21:48 (Zofran Inj) 4 mg Q6H PRN IVP 06/04/16 11:00 (Dulcolax Supp) 10 mg DAILY PRN [place] 06/04/16 11:00 (Colace) 100 mg Q12H PO 06/04/16 11:00 06/05/16 16:55 (Narcan Inj) 0.4 mg UNSCH PRN IV 06/04/16 11:00 (Protonix Inj) 40 mg Q12H IV PUSH 06/04/16 12:00 06/07/16 00:14 (Apresoline Inj) 10 mg Q6HR PRN IV PUSH 3/16/17 13:00 06/05/16 23:47 (Catapres) 0.1 mg Q6H PRN PO 06/04/16 15:00 06/06/16 17:18 Sevelamer Carbonate 800 mg 800 mg TIDAC PO 06/05/16 08:00 06/06/16 17:18 (NS 1000 ml Inj) 1,000 ml @ 0 mls/hr Q0M PRN IV 06/04/16 17:12 Heparin Sodium (Porcine) 8000 units 8,000 units UNSCH PRN IVF 06/04/16 17:15 (NS 1000 ml Inj) 1,000 ml @ 0 mls/hr Q0M PRN IV 06/04/16 17:12 (Mannitol Inj) 12.5 gm UNSCH PRN IV 06/04/16 17:15 (Albumin 25% Inj) 25 gm UNSCH PRN IV 06/04/16 17:15 (NS Flush) 5 ml UNSCH PRN IVF 06/04/16 17:15 (Heparin Inj) UNSCH PRN .XX 06/04/16 17:15 (Gentamicin (Dialysis) Inj) 20 mg UNSCH PRN IV 06/04/16 17:15 (Zofran Inj) 4 mg UNSCH PRN IV 06/04/16 17:15 (Tylenol) 650 mg UNSCH PRN PO 06/04/16 17:15 (Benadryl) 25 mg UNSCH PRN PO 06/04/16 17:15 (Nitrostat Sl) 0.4 mg UNSCH PRN SL 06/04/16 17:15 (Catapres) 0.1 mg UNSCH PRN PO 06/04/16 17:15 (Epogen Inj) 10,000 units UNSCH PRN IV 06/04/16 17:15 06/06/16 16:48 (Gelfoam 12 Mm/7 Mm Top) 1 foam UNSCH PRN TOP 06/04/16 17:15 (Pill Splitter) 1 ea UNSCH PRN OTHER 06/07/16 08:45 A/P Problem List: (1) Metabolic bone disease ICD Code: E88.9 (2) Anemia ICD Code: D64.9 (3) GI bleed ICD Code: K92.2 (4) ESRD (end stage renal disease) on dialysis ICD Code: N18.6 (5) HTN (hypertension) ICD Code: I10 Assessment and Plan 1. Rectal Bleed evident on Rectal Exam by ER specialist, Hemoglobin stable in 11.6 she is in status post Colonoscopy has Severe Diverticulosis noted in the Sigmoid Colon left Colon full of blood probable diverticular bleed, Internal hemorrhoids, Small internal Hemorrhoids external hemorrhoids. recommended Benefiber, continue surveillance, yearly Hemoccult, high fiber diet no Seeds , nuts and Popcorn in diet. return for Colonoscopy in one year of sooner if continue to bleed. today had small amount of blood in her stool discussed by nurse at this time with GI Specialist Doctor Tha Beyersayed and he states this will continue to happen her Hemoglobin is stable, follow with PCP and GI specialist. 2. ESRD on HD on Wednesday, and Wednesday for HD today, Nephrology specialist following. follow her schedule for HD with her Nephrology specialist. 3. Hypertension better control continue present care. 4. Anemia on chronic disease Hemoglobin stable in 11.6 DVT prophylaxis with SCDs Pharmacological Prophylaxis contraindicated due to acute GI bleed. Transfer to Med/Surg Okay to discharge Home by GI specialist. I tried to contact her Daughter Miss Robbie Miller to the phone number [phone] but no answer. Code Status Full code. Discharge Planning Cleared by GI specialist doctor Tha Beyersayed to discharge Home Cirilo Elaine MD Jun 07, 2016 09:00
[2016-06-07] MEDS: VITAMIN B CMPLX/VITC/FOLIC AC CAP PO SCH (09:43)
[2016-06-07] MEDS: SEVELAMER CARBONATE 800 MG TAB PO SCH ×2 (09:43→11:41)
[2016-06-07] MEDS: SODIUM CHLORIDE 0.9% FLUSH 5 ML FLUSH FLUSH SCH (09:43)
[2016-06-07] MEDS: amLODIPine BESYLATE 5 MG TAB PO SCH (09:43)
[2016-06-07] MEDS: FAMOTIDINE 20 MG TAB PO SCH (09:43)
--- NOTE | 2016-06-07 11:05 | HHI.NPPN ---
Subjective General Problems: Anemia Renal Failure: Chronic, End Stage Renal Disease Additional Remarks Patient is alert, feeling better, no SOB, no abd. pain. Review of Systems Gastrointestinal Gastrointestinal: Blood/Tarry Stools Objective Data Data 06/06/16 06/07/16 19:00 07:00 Intake Total 640 ml Output Total 2000 ml 100 ml Balance -2000 ml 540 ml Intake Oral 640 ml IV Total 0 ml Output Stool Total 100 ml Hemodialysis 2000 ml # Voids 0 # Bowel Movements 3 Vital Signs Date Time Temp Pulse Resp B/P Pulse Ox O2 Delivery O2 Flow Rate FiO2 06/07/16 08:00 97.3 74 18 165/78 96 06/07/16 00:09 97.8 73 18 145/75 96 06/06/16 20:31 97.6 81 17 146/75 96 06/06/16 17:20 98.1 83 20 189/89 97 06/06/16 12:00 98.1 79 20 164/78 98 06/06/16 12:00 79 -: 06/07/16 0429 06/06/16 0359 Physical Exam General Appearance: Well Developed, Well Nourished, No Acute Distress Throat Throat Exam: Oral Mucosa [place] & Moist Pulmonary Resp Exam: Clear Bilaterally, Breath Sounds Equal Cardiology CV Exam: Normal Sinus Rhythm, Good Perfusion Gastrointestinal/Abdomen GI Exam: Non-Tender, Bowel Sounds Present Musculoskeletal MS Exam: Joints Intact, Normal Tone Integumentary Skin Exam: Warm, Dry Extremeties Extremities Exam: No Edema, Pedal Pulses Palpable Neurologic Neuro Exam: Alert, Awake, Oriented, Speech Clear, Moving All Extremities Psychiatric Psych Exam: Appropriate Responses Assessment/Plan Problem List: (1) ESRD (end stage renal disease) on dialysis Plan: HD T--Wed, avoid IVF no electrolyte concerns she has patent AV graft for dialysis intermittent renal panel avoid gadolinium high protein diet . HD done yesterday, 2 liters removed and tolerated well. (2) HTN (hypertension) Plan: resume home medications (3) Anemia Plan: Epogen with HD iron profile pending Post transfusion. GI following, Hgb. is stable. (4) Metabolic bone disease Plan: begin renvela (5) GI bleed Plan: GI following to have EGD/colonoscopy today unable to pass NG tube ordered blood transfusion Plan patient was seen and examined. Agree with above assessment and plan. Lindsey Hopper MD Jun 07, 2016 11:05
[2016-06-07] MEDS: DOCUSATE SODIUM 100 MG CAP PO SCH (11:41)
[2016-06-07 12:00] VITALS: BP 144/71; PULSE 71; RESP 18; TEMP 97.4; O2SAT 97
[2016-06-07] MEDS ORDERED: PROT40TA PO (12:02)
--- NOTE | 2016-06-07 12:05 | HHI.DS ---
Discharge Summary Admission Date Jun 04, 2016 at 10:50 Discharge Date: Jun 07, 2016 Admitting Diagnosis GI bleed (1) ESRD (end stage renal disease) on dialysis ICD Code: N18.6 Diagnosis: Secondary (2) GI bleed ICD Code: K92.2 Diagnosis: Principal (3) HTN (hypertension) ICD Code: I10 Diagnosis: Principal (4) Anemia ICD Code: D64.9 Diagnosis: Principal (5) Metabolic bone disease ICD Code: E88.9 Diagnosis: Secondary Procedures Colonoscopy Brief History - From Admission This is a pleasant 70 y/o Female with ESRD on Hemodialysis she had Dialysis today and was sent to Emergency room due to acute Rectal bleed, she started today with red blood in her stools, as Hematochezia no black stools, denied abdominal pain, vomiting. Discussed in the room with the patient's Mr. Jose Elias Miller and with her Daughter Miss Robbie Miller through the phone who serves as Superintendent Operating for her Mother, the patient left her Home this morning at 4:30 AM and then went for Hemodialysis, while on HD she had the urge to go to the restroom and had blood in her anal and perianal area. for this reason was transferred to ER. CBC/BMP: 06/07/16 0429 06/06/16 0359 Significant Findings Laboratory Tests Test 06/04/16 06/05/16 06/06/16 06/06/16 19:25 18:45 03:59 20:15 Hemoglobin 7.6 GM/DL (11.6-15.3) Hematocrit 24.1 % 33.7 % (35.0-46.0) (35.0-46.0) Mean Corpuscular Volume 76.6 FL 76.9 FL (80.0-100.0) (80.0-100.0) Mean Corpuscular Hemoglobin 25.8 PG 25.8 PG (27.0-34.0) (27.0-34.0) Red Cell Distribution Width 18.3 % 18.1 % (11.6-17.2) (11.6-17.2) Neutrophils (%) (Auto) 83.0 % 76.5 % (16.0-70.0) (16.0-70.0) Lymphocytes (%) (Auto) 7.3 % (9.0-44.0) Lymphocytes # (Auto) 0.6 TH/MM3 0.6 TH/MM3 (1.0-4.8) (1.0-4.8) Carbon Dioxide Level 20.0 MEQ/L 17.3 MEQ/L (21.0-32.0) (21.0-32.0) Blood Urea Nitrogen 40 MG/DL (7-18) 46 MG/DL (7-18) Creatinine 9.01 MG/DL 9.52 MG/DL (0.50-1.00) (0.50-1.00) Estimat Glomerular Filtration 4 ML/MIN (>89) 4 ML/MIN (>89) Rate Calcium Level 7.4 MG/DL 7.4 MG/DL (8.5-10.1) (8.5-10.1) Protein Corrected Calcium 7.6 MG/DL 7.8 MG/DL (8.5-10.1) (8.5-10.1) Iron Level 44 MCG/DL (50-170) Total Iron Binding Capacity 167 MCG/DL (250-450) Monocytes (%) (Auto) 8.3 % (0.0-8.0) Eosinophils (%) (Auto) 5.5 % (0.0-4.0) Anion Gap 16 MEQ/L (5-15) Random Glucose 58 MG/DL (74-106) Test 06/07/16 04:29 Hematocrit 34.3 % (35.0-46.0) Mean Corpuscular Volume 75.7 FL (80.0-100.0) Mean Corpuscular Hemoglobin 25.7 PG (27.0-34.0) Red Cell Distribution Width 18.7 % (11.6-17.2) Neutrophils (%) (Auto) 74.8 % (16.0-70.0) Monocytes (%) (Auto) 8.7 % (0.0-8.0) Lymphocytes # (Auto) 0.9 TH/MM3 (1.0-4.8) Imaging No Imaging studies performed. PE at Discharge GENERAL: Well-developed elderly female in no acute distress. Awake, alert , oriented 3. SKIN: Warm and dry. HEAD: Atraumatic. Normocephalic. EYES: Pupils equal and round. No scleral icterus. No injection or drainage. ENT: No nasal bleeding or discharge. Mucous membranes pink and moist. NECK: Trachea midline. No JVD. CARDIOVASCULAR: Regular rate and rhythm. Systolic Murmur in all focus evaluated. RESPIRATORY: No accessory muscle use. Clear to auscultation. Breath sounds equal bilaterally. GASTROINTESTINAL: Abdomen soft, non-tender, nondistended. Hepatic and splenic margins not palpable. RECTAL EXAM: No masses or tenderness, stool is reddish brown, Hemoccult positive. MUSCULOSKELETAL: No obvious deformities. No clubbing. No cyanosis. No edema. NEUROLOGICAL: Awake and alert. No obvious cranial nerve deficits. Motor grossly within normal limits. Normal speech. PSYCHIATRIC: Appropriate mood and affect; insight and judgment normal. Hospital Course This is a pleasant 70 y/o Female with ESRD on Hemodialysis she had Dialysis today and was sent to Emergency room due to acute Rectal bleed, she started today with red blood in her stools, as Hematochezia no black stools, denied abdominal pain, vomiting. Stable discussed with patient and nurse Miss Stevens in the room, no further GI bleed, stable Hemoglobin now in 12.1, tolerating diet. 06/07 Seen in her bedroom, stable had a bowel movement with some blood in it, was called GI Specialist Doctor Pepito Chacko-sayed he states the patient will continue with this kind of stools for some days but her Hemoglobin is stable and can be discharge at this time. I tried to call her Daughter Miss Robbie Miller to the phone number in EMR [phone] but she did not answer Assessment and Plan 1. Rectal Bleed evident on Rectal Exam by ER specialist, Hemoglobin stable in 11.6 she is in status post Colonoscopy has Severe Diverticulosis noted in the Sigmoid Colon left Colon full of blood probable diverticular bleed, Internal hemorrhoids, Small internal Hemorrhoids external hemorrhoids. recommended Benefiber, continue surveillance, yearly Hemoccult, high fiber diet no Seeds , nuts and Popcorn in diet. return for Colonoscopy in one year of sooner if continue to bleed. today had small amount of blood in her stool discussed by nurse at this time with GI Specialist Doctor Pepito,Tha El-sayed and he states this will continue to happen her Hemoglobin is stable, follow with PCP and GI specialist. 2. ESRD on HD on Wednesday, and Wednesday for HD today, Nephrology specialist following. follow her schedule for HD with her Nephrology specialist. 3. Hypertension better control continue present care. 4. Anemia on chronic disease Hemoglobin stable in 11.6 DVT prophylaxis with SCDs Pharmacological Prophylaxis contraindicated due to acute GI bleed. Transfer to Med/Surg Okay to discharge Home by GI specialist. I tried to contact her Daughter Miss Robbie Miller to the phone number [phone] but no answer. Code Status Full code. Discharge Planning Cleared by GI specialist doctor Tha Beyer El-sayed to discharge Home Pt Condition on Discharge: Good Discharge Disposition: Discharge Home Discharge Time: > 30 minutes Discharge Instructions DIET: Follow Instructions for: Heart Healthy Diet Activities you can perform: Regular-No Restrictions Cirilo Elaine MD Jun 07, 2016 12:05
== END 2016-06-07 15:15 | disposition home or self-care (01) | DRG 377 ==
LOC: NEPC 08:03 → NEDA 10:50 → HOCA 13:53 → HIME 06-05 21:00 → N07B 06-06 16:42 → N07A 06-06 17:03
PROVIDERS: ADMIT Internal Medicine; ATTEND Internal Medicine
PROC: 30233N1 Transfusion of Nonautologous Red Blood Cells into Peripheral Vein, Percutaneous Approach (ICD-10-PCS; principal; 2016-06-04)
PROC: 0DB68ZX Excision of Stomach, Via Natural or Artificial Opening Endoscopic, Diagnostic (ICD-10-PCS; 2016-06-05)
PROC: 0DJD8ZZ Inspection of Lower Intestinal Tract, Via Natural or Artificial Opening Endoscopic (ICD-10-PCS; 2016-06-05)
PROC: 5A1D00Z (ICD-10-PCS; 2016-06-06)
DX: K57.31 Diverticulosis of large intestine without perforation or abscess with bleeding (principal); N18.6 End stage renal disease; E88.89 Other specified metabolic disorders; N25.81 Secondary hyperparathyroidism of renal origin; I12.0 Hypertensive chronic kidney disease with stage 5 chronic kidney disease or end stage renal disease; D63.8 Anemia in other chronic diseases classified elsewhere; Z99.2 Dependence on renal dialysis; H40.9 Unspecified glaucoma; E21.3 Hyperparathyroidism, unspecified; E07.9 Disorder of thyroid, unspecified; Z88.1 Allergy status to other antibiotic agents; Z88.8 Allergy status to other drugs, medicaments and biological substances; Z91.048 Other nonmedicinal substance allergy status; Z90.5 Acquired absence of kidney; Z87.11 Personal history of peptic ulcer disease; K20.9 Esophagitis, unspecified; K29.70 Gastritis, unspecified, without bleeding; K64.4 Residual hemorrhoidal skin tags; K57.30 Diverticulosis of large intestine without perforation or abscess without bleeding; K64.8 Other hemorrhoids; D64.9 Anemia, unspecified
CPT/HCPCS: 36430; 76937; 80048; 80053; 83036; 83540; 83550; 84100; 84155; 84439; 84443; 85014; 85018; 85025; 85610; 85730; 86850; 86900; 86901; 86902; 86920; 86922; 87641; 88305; 88312; 90935; 93005; 96374; C9113; J0360; J1940; J7030; J7120; P9016; Q4081